=== PATIENT | female | born 1940 | race Caucasian/White ===

== ENCOUNTER 2017-05-08 12:14 | Inpatient (IN) | payer OTHER, MEDICARE ==
[~2017-05-08] VITALS: Ht 154.9 cm; Wt 52.0 kg
[~2017-05-08 12:14] MED LIST: FENO160T2 OR; FISHOIL PO; GLYB5TAB3 OR; LEVO75TA3 PO; LISI10TA PO; METO50CR OR; NIAC500T52 PO; SIMV80TA OR
[2017-05-08 12:30] VITALS: BP 156/70; PULSE 76; RESP 18; TEMP 98.2; O2SAT 97
--- NOTE | 2017-05-08 12:38 | PD ---
HPI Chief Complaint: Psychiatric Symptoms Time Seen by Provider: 12:28 Travel History International Travel<30 days: No Contact w/Intl Traveler<30days: No Traveled to known affect area: No History of Present Illness HPI 76-year-old female here under Crews act initiated by the Police Department. The patient reports that her in March of this year. Her daughter from [place] has been visiting and staying with her since then. She feels like her daughter has been trying to control her and they have been arguing quite a bit. Today they had an argument and the patient said to her daughter "I'd probably be better off with her father." This was taken as a suicidal statement and the daughter called the police who placed her under Crews act. According to the police there are firearms at home. The patient denies any suicidal or homicidal ideation. She denies any drug or alcohol use. She does endorse some grieving since her . She has no other complaints. PFSH Past Medical History High Cholesterol: Yes Coronary Artery Disease: Yes Diabetes: Yes Diminished Hearing: No Hypertension: Yes Tubal Ligation: Yes Past Surgical History Cardiac Surgery: Yes (BYPASS) Section: Yes Cholecystectomy: Yes Tonsillectomy: Yes Other Surgery: Yes (CARPLE TUNNEL) Social History Alcohol Use: No Tobacco Use: No Substance Use: No Allergies-Medications (Allergen,Severity, Reaction): Coded Allergies: Sulfa (Verified Allergy, Severe, HIVES AND RESPIRATORY ISSUES, 07/09/12) Macrodantin (Verified Allergy, Mild, VOMITING, 07/09/12) Vasotec (Verified Allergy, Mild, VOMITING, 07/09/12) Reported Meds & Prescriptions Reported Meds & Active Scripts Active Reported Levothyroxine Sodium (Generic) (Levothyroxine Sodium) 75 Mcg Tab 75 Mcg PO DAILY Fenofibrate 160 Mg Tab 160 Mg OR DAILY Niacin Er (Niacin) 500 Mg Tab 500 Mg PO DAILY Fish Oil Oil 1 Dose PO DAILY Glyburide 5 Mg Tab 5 Mg OR DIRECTED Simvastatin 80 Mg Tab 80 Mg OR DAILY Lisinopril/Hctz 20/25 (HCTZ/Lisinopril) Tab 1 Tab PO DAILY Metoprolol Succinate Er (Metoprolol Succinate) 50 Mg Tab 50 Mg OR DAILY Review of Systems Except as stated in HPI: all other systems reviewed are Neg Physical Exam Narrative GENERAL: Well-developed well-nourished female in no acute distress SKIN: Warm and dry. HEAD: Atraumatic. Normocephalic. EYES: Pupils equal and round. No scleral icterus. No injection or drainage. ENT: No nasal bleeding or discharge. Mucous membranes pink and moist. NECK: Trachea midline. No JVD. CARDIOVASCULAR: Regular rate and rhythm. 1+ systolic murmur noted. RESPIRATORY: No accessory muscle use. Clear to auscultation. Breath sounds equal bilaterally. GASTROINTESTINAL: Abdomen soft, non-tender, nondistended. Hepatic and splenic margins not palpable. MUSCULOSKELETAL: No obvious deformities. No clubbing. No cyanosis. No edema. NEUROLOGICAL: Awake and alert. No obvious cranial nerve deficits. Motor grossly within normal limits. Normal speech. PSYCHIATRIC: Appropriate mood and affect; insight and judgment normal. Data Data Last Documented VS Vital Signs Date Time Temp Pulse Resp B/P Pulse Ox O2 Delivery O2 Flow Rate FiO2 05/08/17 12:30 98.2 76 18 156/70 97 Orders Complete Blood Count With Diff (05/08/17 12:35) Comprehensive Metabolic Panel (05/08/17 12:35) Urinalysis - C+S If Indicated (05/08/17 12:35) Psych Screen (05/08/17 12:35) Drug Screen, Random Urine (05/08/17 12:35) Labs Laboratory Tests Test 05/08/17 12:50 White Blood Count 11.1 TH/MM3 Red Blood Count 4.83 MIL/MM3 Hemoglobin 13.9 GM/DL Hematocrit 41.0 % Mean Corpuscular Volume 84.9 FL Mean Corpuscular Hemoglobin 28.8 PG Mean Corpuscular Hemoglobin 34.0 % Concent Red Cell Distribution Width 13.4 % Platelet Count 241 TH/MM3 Mean Platelet Volume 8.2 FL Neutrophils (%) (Auto) 74.5 % Lymphocytes (%) (Auto) 14.9 % Monocytes (%) (Auto) 8.6 % Eosinophils (%) (Auto) 1.5 % Basophils (%) (Auto) 0.5 % Neutrophils # (Auto) 8.3 TH/MM3 Lymphocytes # (Auto) 1.7 TH/MM3 Monocytes # (Auto) 1.0 TH/MM3 Eosinophils # (Auto) 0.2 TH/MM3 Basophils # (Auto) 0.1 TH/MM3 CBC Comment DIFF FINAL Differential Comment Sodium Level 141 MEQ/L Potassium Level 3.5 MEQ/L Chloride Level 105 MEQ/L Carbon Dioxide Level 28.2 MEQ/L Anion Gap 8 MEQ/L Blood Urea Nitrogen 18 MG/DL Creatinine 0.91 MG/DL Estimat Glomerular Filtration 60 ML/MIN Rate Random Glucose 98 MG/DL Calcium Level 9.7 MG/DL Total Bilirubin 0.7 MG/DL Aspartate Amino Transf 39 U/L (AST/SGOT) Alanine Aminotransferase 38 U/L (ALT/SGPT) Alkaline Phosphatase 91 U/L Total Protein 7.6 GM/DL Albumin 3.9 GM/DL MDM Medical Decision Making Medical Screen Exam Complete: Yes Emergency Medical Condition: Yes Medical Record Reviewed: Yes Differential Diagnosis Adjustment reaction, grieving, major depressive disorder, acute psychosis, substance-induced disorder Narrative Course 76-year-old female presents under Crews act for suicidal statements made to her daughter. Mental health screening discussed with the patient. Psychiatric screen ordered. The patient is medically cleared for psychiatric disposition. Diagnosis Primary Impression: Grieving Additional Impression: Adjustment reaction Qualified Code: F43.20 - Adjustment disorder, unspecified type Rah Godoy May 08, 2017 12:37
[2017-05-08 13:13] LABS: AUTOMATED NEUTROPHIL # 8.3 TH/MM3 (1.8-7.7); BASOPHIL # 0.1 TH/MM3 (0-0.2); BASOPHIL % 0.5 % (0.0-2.0); EOSINOPHIL # 0.2 TH/MM3 (0-0.4); EOSINOPHIL % 1.5 % (0.0-4.0); HEMO FLAGS DIFF FINAL; LYMPH % 14.9 % (9.0-44.0); LYMPHOCYTE # 1.7 TH/MM3 (1.0-4.8); MEAN CELL VOLUME 84.9 FL (80.0-100.0); MEAN CORPUSCULAR HEMOGLOBIN 28.8 PG (27.0-34.0); MONO % 8.6 % (0.0-8.0); NEUT % 74.5 % (16.0-70.0); PLATELET COUNT 241 TH/MM3 (150-450); RED BLOOD COUNT 4.83 MIL/MM3 (4.00-5.30); RED CELL DISTRIBUTION WIDTH 13.4 % (11.6-17.2); WHITE BLOOD COUNT 11.1 TH/MM3 (4.0-11.0)
[2017-05-08 13:31] LABS: ALT (GPT) 38 U/L (10-53); ANION GAP 8 MEQ/L (5-15); AST (GOT) 39 U/L (15-37); BICARBONATE 28.2 MEQ/L (21.0-32.0); BLOOD UREA NITROGEN 18 MG/DL (7-18); CHLORIDE 105 MEQ/L (98-107); GLOMERULAR FILTRATION RATE 60 ML/MIN (>89); POTASSIUM 3.5 MEQ/L (3.5-5.1); SODIUM (NA) 141 MEQ/L (136-145)
[2017-05-08 13:33] LABS: ALKALINE PHOSPHATASE 91 U/L (45-117); TOTAL BILIRUBIN ADULT 0.7 MG/DL (0.2-1.0)
[2017-05-08] MEDS ORDERED: GLYB5TAB3 PO (14:29)
[2017-05-08] MEDS ORDERED: FENO160T PO (14:29)
[2017-05-08] MEDS ORDERED: FISH100020 (14:29)
[2017-05-08] MEDS ORDERED: LISI20TA3 PO (14:29)
[2017-05-08] MEDS ORDERED: ASPI81TA81 (14:29)
[2017-05-08] MEDS ORDERED: NIAC500T67 PO (14:29)
[2017-05-08] MEDS ORDERED: SIMV80TA PO (14:29)
[2017-05-08 14:46] LABS: AMPHETAMINE, URINE NEG (NEG); BARBITURATES, URINE NEG (NEG); COCAINE, URINE NEG (NEG)
[2017-05-08 15:36] VITALS: BP 158/76
--- NOTE | 2017-05-08 15:41 | PD ---
History of Present Illness Chief Complaint: Psychiatric Symptoms Time Seen by Provider: 14:45 Travel History International Travel<30 Days: No Contact w/Intl Traveler<30days: No Known affected area: No Legal Status Legal Status: Crews Act Crews Act Signed By: [place] History of Present Illness: History of Present Illness HPI 76-year-old female with no previous psychiatric history who is here under Crews act initiated by the Police Department. The BA alleges that she has made suicidal statements towards daughter with the ability to carry them out. The patient is seen in main ed. Awake, alert and oriented. Mood is anxious. Speech is clear and logical. She is tearful at times when talking about her who on march 31, 2017. Since her her daughter has been living with her and the patient reports that they do not get along and that " she wants to control me". She admits to having said that she wanted to but denies that she meant it as a suicidal statement. She denies thta she has made any attempt at harming herself. Patient became agitated when she was informed that she could not be released because she was under a BA. She state " If you don't sedate me I am going to leave this hospital . I'm going to jump out that glass door. Her nurse is at bedside when patient made such statements. EMR reviewed. No previous contact with [facility] psychiatry. Negative toxicology. I contacted her daughter Sabrina at [phone]. She reports that the patient has been increasingly agitated and threatening, that she has tried to hit her with closed fists, that she has threatened on several occasions to take all her pills as well as her 's pills, that she has been hiding objects, not paying her bills and then arguing with the bill collectors who call her, going out in her car and getting lost. The daughter is concerned for her safety as well as her mother's safety since she has threatened to kill herself several times and her behaviors have been escalating. PFSH Past Medical History Arthritis: Yes High Cholesterol: Yes Coronary Artery Disease: Yes Diabetes: Yes Patient Takes Glucophage: No Diminished Hearing: No Hypertension: Yes Influenza Vaccination: Yes ?: Not Tubal Ligation: Yes Past Surgical History Cardiac Surgery: Yes (BYPASS) Section: Yes Cholecystectomy: Yes Coronary Artery Bypass Graft: Yes Tonsillectomy: Yes Other Surgery: Yes (CARPLE TUNNEL) Psychiatric History Psychiatric History Hx Psychiatric Treatment: None reported History of Inpatient Treatment: No Guns or firearms in home: Yes (The ammunition has been removed from the home. ) Social History Born and raised in [place], [place]. since March 2017. has 3 daughters. retired. Hx Alcohol Use: No Hx Tobacco Use: No (quit more than 10 yrs) Hx Substance Use: No Family Psychiatric History Negative Allergies-Medications (Allergen,Severity, Reaction): Coded Allergies: Sulfa (Verified Allergy, Severe, HIVES AND RESPIRATORY ISSUES, 07/09/12) Macrodantin (Verified Allergy, Mild, VOMITING, 07/09/12) Vasotec (Verified Allergy, Mild, VOMITING, 07/09/12) Reported Meds & Prescriptions Reported Meds & Active Scripts Active Reported Fenofibrate 160 Mg Tab 160 Mg PO DAILY Niacin (Niacinamide) 500 Mg Tablet PO BID Fish Oil 1000 mg ([place]-3 Fatty Acids) 1 Cap Cap Glyburide 5 Mg Tab 5 Mg PO BID Take with meals at the same time each day Simvastatin 80 Mg Tab 80 Mg PO DAILY Lisinopril-Hctz 20-25 Mg Tab 1 Tab PO DAILY Aspir-81 (Aspirin) 81 Mg Tabdr 81 Review of Systems Except as stated in HPI: all other systems reviewed are Neg Exam Alert: Yes [place]: Person (ox3) Mood: Angry, Anxious, Depressed Affect: Tearful Speech: Clear, Logical Eye Contact: Normal Memory Intact: Comment (not fformally tetsed) Hallucinations: Other (Negative) Delusions: No Delusion Type: Other (suspicious regarding her daughter) Suicidal: Ideation (denies any) Homicidal: Ideation (deneis any) Insight/Judgement Poor. Not impaired. MDM Medical Decision Making Medical Record Reviewed: Yes Assessment/Plan 76 year old female with no previous psychiatric history who is under a BA after she made suicidal statements to her daughter. The patient's daughter presents concerns for her mother's safety as she has been increasingly agitated and has verbalized her intent to kill herself on several occasions. She has gathered all her pills and threatened to take them although she has not done anything to harm herself. The daughter is also reporting confusion, forgetfulness as well as decreased ability to manage her responsibilities. At this time she will be admitted under the BA in order to further observe, maintain safety and to initiate treatment id necessary. Orders Complete Blood Count With Diff (05/08/17 12:35) Comprehensive Metabolic Panel (05/08/17 12:35) Psych Screen (05/08/17 12:35) Drug Screen, Random Urine (05/08/17 12:35) Results Vital Signs Date Time Temp Pulse Resp B/P Pulse Ox O2 Delivery O2 Flow Rate FiO2 05/08/17 12:30 98.2 76 18 156/70 97 Laboratory Tests Test 05/08/17 05/08/17 12:50 14:00 White Blood Count 11.1 Red Blood Count 4.83 Hemoglobin 13.9 Hematocrit 41.0 Mean Corpuscular Volume 84.9 Mean Corpuscular Hemoglobin 28.8 Mean Corpuscular Hemoglobin 34.0 Concent Red Cell Distribution Width 13.4 Platelet Count 241 Mean Platelet Volume 8.2 Neutrophils (%) (Auto) 74.5 Lymphocytes (%) (Auto) 14.9 Monocytes (%) (Auto) 8.6 Eosinophils (%) (Auto) 1.5 Basophils (%) (Auto) 0.5 Neutrophils # (Auto) 8.3 Lymphocytes # (Auto) 1.7 Monocytes # (Auto) 1.0 Eosinophils # (Auto) 0.2 Basophils # (Auto) 0.1 CBC Comment DIFF FINAL Differential Comment Sodium Level 141 Potassium Level 3.5 Chloride Level 105 Carbon Dioxide Level 28.2 Anion Gap 8 Blood Urea Nitrogen 18 Creatinine 0.91 Estimat Glomerular Filtration 60 Rate Random Glucose 98 Calcium Level 9.7 Total Bilirubin 0.7 Aspartate Amino Transf 39 (AST/SGOT) Alanine Aminotransferase 38 (ALT/SGPT) Alkaline Phosphatase 91 Total Protein 7.6 Albumin 3.9 Urine Opiates Screen NEG Urine Barbiturates Screen NEG Urine Amphetamines Screen NEG Urine Benzodiazepines Screen NEG Urine Cocaine Screen NEG Urine Cannabinoids Screen NEG Diagnosis Primary Impression: Adjustment reaction Additional Impression: Grieving Admitting Information Admitting Physician Requests: Admit (Dr. hoover) Problem Qualifiers Primary Impression: Adjustment reaction Qualified Code: F43.25 - Adjustment disorder with mixed disturbance of emotions and conduct Susanne Mcfarland May 08, 2017 15:41
[2017-05-08] MEDS ORDERED: ACETAMINOPHEN 325 MG TAB PO PRN (15:45)
[2017-05-08] MEDS ORDERED: ALUMINUM/MAGNESIUM/SIMETH 30 ML CUP PO PRN (15:45)
[2017-05-08] MEDS ORDERED: MAGNESIUM HYDROXIDE SUSP 30 ML CUP PO PRN (15:45)
[2017-05-08 16:59] VITALS: BP 199/86; PULSE 85; RESP 22; TEMP 98.4; O2SAT 97
[2017-05-09 06:06] VITALS: BP 125/58; PULSE 77; RESP 17; TEMP 98; O2SAT 97
[2017-05-09 08:49] LABS: ANION GAP 12 MEQ/L (5-15); BICARBONATE 25.5 MEQ/L (21.0-32.0); BLOOD UREA NITROGEN 18 MG/DL (7-18); CHLORIDE 103 MEQ/L (98-107); GLOMERULAR FILTRATION RATE 71 ML/MIN (>89); POTASSIUM 3.5 MEQ/L (3.5-5.1); SODIUM (NA) 140 MEQ/L (136-145)
[2017-05-09] MEDS ORDERED: FENOFIBRATE 145 MG TAB PO SCH (09:00)
[2017-05-09] MEDS ORDERED: NON-FORMULARY DRUG (Lisinopril-Hctz 1 TAB) PO SCH (09:00)
[2017-05-09] MEDS ORDERED: HYDROCHLOROTHIAZIDE 25 MG TAB PO SCH (09:00)
[2017-05-09] MEDS ORDERED: SIMVASTATIN 80 MG PO SCH (09:00)
[2017-05-09] MEDS ORDERED: LISINOPRIL 20 MG TAB PO SCH (09:00)
[2017-05-09 09:16] LABS: HDL CHOLESTEROL 33.9 MG/DL (40.0-60.0); LDL CHOLESTEROL 89 MG/DL (0-99)
[2017-05-09 10:55] LABS: HEMOGLOBIN A1a 1.1 %; HEMOGLOBIN A1b 1.9 %; HEMOGLOBIN Ao 83.9 %; HEMOGLOBIN LA1C 2.3 %; HEMOGLOBIN P3 5.9 %
[2017-05-09] MEDS ORDERED: ALUMINUM/MAGNESIUM/SIMETH 30 ML CUP PO PRN (11:30)
[2017-05-09] MEDS ORDERED: MAGNESIUM HYDROXIDE SUSP 30 ML CUP PO PRN (11:30)
[2017-05-09] MEDS ORDERED: ACETAMINOPHEN 325 MG TAB PO PRN (11:30)
--- NOTE | 2017-05-09 11:42 | HHI.HP ---
Provisional Diagnosis Admission Date May 08, 2017 at 15:44 [place] I. Adjustment disorder with mixed disturbances of conduct and emotion f 43.25 Certification of Person's Competence To Provide Express and Informed Consent I have personally examined Micaela Candelaria , a person being served at [facility] on, May 09, 2017 11:28. Express and informed consent means consent voluntarily given in writing, by a competent person, after sufficient explanation and disclosure of the subject matter involved to enable the person to make a knowing and willful decision without any element of force, fraud, deceit, duress, or other form of constraint or coercion. This person is 18 years of age or older, is not now known to be incompetent to consent to treatment with a guardian advocate, and does not have a health care surrogate or proxy currently making medical treatment decisions. I have found this person to be one of the following: [xxx] Competent to provide express and informed consent, as defined above, for voluntary admission to this facility and is competent to provide express and informed consent for treatment. He/she has the consistent capacity to make well reasoned, willful, and knowing decisions concerning his or her medical or mental health treatment. The person fully and consistently understands the purpose of the admission for examination/placement and is fully capable of personally exercising all rights assured under [place] Incompetent to provide express and informed consent to voluntary admission, and this is incompetent to provide express and informed consent to treatment. The person must be transferred to involuntary status and a petition for a guardian advocate filed with the Circuit Court. [] Refusing to provide express and informed consent to voluntary admission but is competent to provide express and informed consent for treatment. The person must be discharged or transferred to involuntary status. Form shall be completed within 24 hours of a person's arrival at the receiving facility and filed in the clinical record of each person: 1. Admitted on a voluntary basis 2. Permitted to provide express and informed consent to his/her own treatment 3. Allowed to transfer from involuntary to voluntary status 4. Prior to permitting a person to consent to his or her own treatment after having been previously found incompetent to consent to treatment. History of Present Illness Capacity: Has Capacity HPI Patient is a 76-year-old white female initially comes here under Crews act by the [employer] dated 05/08/17 11:35 AM. That document reviewed. Stating suicidal statements towards daughter with the ability to carry them out patient seen in ED screened there. Urine toxicology negative. Patient seen in her room with nurse Vanessa and counselor Alysha. Patient is alert oriented calm white female appears her stated age. Stating that her of 59 years around March 31 after a bout of cancer. He did dietary here at [facility]. Prior to 's her 60+-year-old daughter came down from [place] to assist. Patient states that at the present time daughter is becoming more controlling and demanding of her. To the point with relationship appears to be somewhat contentious. Patient did acknowledge making statement yesterday after being in an argument with her daughter that essentially if things 1 change she would rather be and with her . Patient denies that this is any type of a suicidal statement. She denies suicidal ideation intent or plan. Patient denies any prior suicidal ideation intent or plan. Patient denies any prior psychiatric contact hospitalizations or psychotropic medication. She denies any alcohol or drug use. Patient states she has 3 daughters. All of which live up around the [place] in [facility]. She states she had a long loving relationship with her . She acknowledges crying episodes at times still. She states her sleep is okay, her appetite is okay, she denies any voices or visions, states her concentration and attention is okay. She does acknowledge some decreased coping skills with her daughter. She denies any self-medication. Patient is well oriented 4. At this time patient does not meet Crews criteria I will lift the Crews act allow to be discharged herself, no Rx by me, but with a strong recommendation for grief counseling. There also may be some financial issues involved with this patient states she does have a long-standing trust fund that. But denies having any present legal resources. Thus I recommend that she contact a feed research aide to help her with her legal or financial issues that may arise Review of Systems Constitutional: DENIES: Diaphoretic episodes, Fatigue, Fever, Weight gain, Weight loss, Chills, Dizziness, Change in appetite, Night Sweats Endocrine: DENIES: Abnorml menstrual pattern, Heat/cold intolerance, Polydipsia , Polyuria, Polyphagia Eyes: DENIES: Blurred vision, Diplopia, Eye inflammation, Eye pain, Vision loss , Photosensitivity, Double Vision Ears, nose, mouth, throat: DENIES: Tinnitus, Hearing loss, Vertigo, Nasal discharge, Oral lesions, Throat pain, Hoarseness, Ear Pain, Running Nose, Epistaxis, Sinus Pain, Toothache, Odynophagia Respiratory: DENIES: Apneas, Cough, Snoring, Wheezing, Hemoptysis, Sputum production, Shortness of breath Cardiovascular: DENIES: Chest pain, Palpitations, Syncope, Dyspnea on Exertion , PND, Lower Extremity Edema, Orthopnea, Claudication Gastrointestinal: DENIES: Abdominal pain, Black stools, Bloody stools, Constipation, Diarrhea, Nausea, Vomiting, Difficulty Swallowing, Anorexia Genitourinary: DENIES: Abnormal vaginal bleeding, Dysmenorrhea, Dyspareunia, Sexual dysfunction, Urinary frequency, Urinary incontinence, Urgency, Hematuria , Dysuria, Nocturia, Vaginal discharge Musculoskeletal: DENIES: Joint pain, Muscle aches, Stiffness, Joint Swelling, Back pain, Neck pain Integumentary: DENIES: Abnormal pigmentation, Pruritus, Rash, Nail changes, Breast masses, Breast skin changes, Nipple discharge Hematologic/lymphatic: DENIES: Bruising, Lymphadenopathy Immunologic/allergic: DENIES: Eczema, Urticaria Neurologic: DENIES: Abnormal gait, Headache, Localized weakness, Paresthesias, Seizures, Speech Problems, Tremor, Poor Balance Psychiatric: COMPLAINS OF: Depression (appears grief related), Suicidal Ideation (denies any suicidal ideation intent or plan at this time) Past Psych History Psychological trauma history Denies physical or sexual abuse Violence risk - others (6 mos) Low Violence risk - self (6 mos) Low Substance Abuse History Drugs/Alcohol past 12 months Denies Past Family Social History Coded Allergies: Sulfa (Verified Allergy, Severe, HIVES AND RESPIRATORY ISSUES, 07/09/12) Macrodantin (Verified Allergy, Mild, VOMITING, 07/09/12) Vasotec (Verified Allergy, Mild, VOMITING, 07/09/12) Past Medical History Patient medically cleared ED Reported Medications Fenofibrate 160 Mg Are256 Mg PO DAILY #30 TAB Ref 0 05/08/17 Niacinamide (Niacin)500 Mg Tablet Po Bid 05/08/17 [place]-3 Fatty Acids (Fish Oil 1000 mg)1 Cap Cap 05/08/17 Glyburide 5 Mg Tab5 Mg PO BID #60 TAB Ref 0 Take with meals at the same time each day 05/08/17 Simvastatin 80 Mg Tab80 Mg PO DAILY #30 TAB Ref 0 05/08/17 Lisinopril-Hctz 20-25 Mg Tab1 Tab PO DAILY #30 TAB Ref 0 05/08/[address] (Aspir-81)81 Mg Tabdr81 05/08/17 Current Medications Medications (Trade) Dose Ordered Sig/Jose Miguel Route Start Time Stop Time Status Last Admin (Tylenol) 650 mg Q4H PRN PO 05/08/17 15:45 (Milk Of Magnesia Liq) 30 ml DAILY PRN PO 05/08/17 15:45 (Mag-Al Plus Susp Liq) 30 ml Q6H PRN PO 05/08/17 15:45 (Tricor) 145 mg DAILY PO 05/09/17 09:00 05/09/17 08:30 Patient Own Medication PT OWN MED: SIMVASTA... DAILY PO 05/09/17 09:00 Hold (Prinivil) 20 mg DAILY PO 05/09/17 09:00 05/09/17 08:30 (Hydrodiuril) 25 mg DAILY PO 05/09/17 09:00 05/09/17 08:30 Family History Patient denies any mental illness in family Social History Patient recently , has 3 adult daughters. One of whom is visiting with her now Patient's Strengths (min. 2) Patient verbal cooperative understanding of issues Physical Exam Patient seen screen in ED exam reviewed and agreed with. Patient sitting quietly in her room she is in no acute distress, neck is supple, no respiratory distress, abdomen soft and nontender, moves all 4 extremities without difficulty. No abnormal motor movements Vital Signs Vital Signs Date Time Temp Pulse Resp B/P Pulse Ox O2 Delivery O2 Flow Rate FiO2 05/09/17 06:06 98.0 77 17 125/58 97 Mental Status Examination Alert oriented white female appears stated age sitting calmly in her room with staff as mentioned above calm cooperative with good eye contact Appearance Clean neatly Speech: Unremarkable Orientation: x3 Memory: Unremarkable Thought Process: Logical, Organized Thought Content: Unremarkable Language Good Fund of Knowledge There Hallucination Type: None Attention and Concentration: Good Suicidal Ideation: No (denies) Previous Suicide Attempts: No (denies) Suicidal Plan Remarks Denies Homicidal Ideation: No Previous Homicide Attempts: No Insight: Fair Judgment: WNL Affect: Other (slight decreased range intensity) Mood: Euthymic (to mildly dysphoric) Motor Activity: Normal gait Assessment & Plan Problem List: (1) Adjustment disorder with mixed disturbance of emotions and conduct ICD Code: F43.25 Assessment & Plan Estimated LOS: days patient does not meet Crews criteria will lift Crews act patient to be discharged herself, no Rx by me, strong recommendation grief counseling, strong recommendation she finds legal counseling to help her with any legal or financial issues that might arise Discharge Planning See above Request HC Surrog/Guard Advoc?: No Davy Morales MD May 09, 2017 11:42
--- NOTE | 2017-05-09 12:43 | HHI.DS ---
Psychiatry Discharge Summary Inpatient Psychiatric care?: Yes Advance Directive: No Reason Not Provided: Due to Patient Condition Mental Health AdvanceDirective: No Health Care Proxy: No Admission Admission Date May 08, 2017 at 15:44 Admission Diagnosis: (1) Adjustment disorder with mixed disturbance of emotions and conduct ICD Code: F43.25 Brief History Patient is a 76-year-old white female initially comes here under Crews act by the [place] [employer] dated 05/08/17 11:35 AM. That document reviewed. Stating suicidal statements towards daughter with the ability to carry them out patient seen in ED screened there. Urine toxicology negative. Patient seen in her room with nurse Vanessa and counselor Alysha. Patient is alert oriented calm white female appears her stated age. Stating that her of 59 years around March 31 after a bout of cancer. He did dietary here at [facility]. Prior to 's her 60+-year-old daughter came down from [place] to assist. Patient states that at the present time daughter is becoming more controlling and demanding of her. To the point with relationship appears to be somewhat contentious. Patient did acknowledge making statement yesterday after being in an argument with her daughter that essentially if things 1 change she would rather be and with her . Patient denies that this is any type of a suicidal statement. She denies suicidal ideation intent or plan. Patient denies any prior suicidal ideation intent or plan. Patient denies any prior psychiatric contact hospitalizations or psychotropic medication. She denies any alcohol or drug use. Patient states she has 3 daughters. All of which live up around the [place] in [facility]. She states she had a long loving relationship with her . She acknowledges crying episodes at times still. She states her sleep is okay, her appetite is okay, she denies any voices or visions, states her concentration and attention is okay. She does acknowledge some decreased coping skills with her daughter. She denies any self-medication. Patient is well oriented 4. At this time patient does not meet Crews criteria I will lift the Crews act allow to be discharged herself, no Rx by me, but with a strong recommendation for grief counseling. There also may be some financial issues involved with this patient states she does have a long-standing trust fund that. But denies having any present legal resources. Thus I recommend that she contact a teacher adult education to help her with her legal or financial issues that may arise Tobacco Use In Past 30 Days: No Tobacco Past 30 Days Alcohol Use: Never Hospital Course Please see above dictation under brief history. Patient does not meet Crews criteria. Lift Crews act. Patient to be discharged to herself, no Rx by me, she may continue her own scheduled home medications, strong referral to grief counseling, also referral to get legal advice to protect her legal and financial issues Results Blood Pressure 125 / 58 Vital Signs Date Time Temp Pulse Resp B/P Pulse Ox O2 Delivery O2 Flow Rate FiO2 05/09/17 06:06 98.0 77 17 125/58 97 Laboratory Tests Test 05/08/17 05/09/17 12:50 08:10 White Blood Count 11.1 TH/MM3 (4.0-11.0) Neutrophils (%) (Auto) 74.5 % (16.0-70.0) Monocytes (%) (Auto) 8.6 % (0.0-8.0) Neutrophils # (Auto) 8.3 TH/MM3 (1.8-7.7) Monocytes # (Auto) 1.0 TH/MM3 (0-0.9) Estimat Glomerular Filtration 60 ML/MIN (>89) 71 ML/MIN (>89) Rate Aspartate Amino Transf 39 U/L (15-37) (AST/SGOT) Random Glucose 133 MG/DL (74-106) HDL Cholesterol 33.9 MG/DL (40.0-60.0) Vitamin B12 Level 1393 PG/ML (193-986) 25-Hydroxy Vitamin D Total 15.3 ng/ML (30-100) Laboratory Results Test 05/09/17 08:10 Hemoglobin A1c 6.0 % (4.3-6.0) Triglycerides Level 144 MG/DL (42-150) Cholesterol Level 152 MG/DL (120-200) LDL Cholesterol 89 MG/DL (0-99) HDL Cholesterol 33.9 MG/DL (40.0-60.0) Summary of Procedures None done Pending results at discharge: No Medications # of Antipsychotic meds at D/C: 0 Approp Antipsych med options 1 - Minimum of three failed multiple trials of monotherapy. 2 - Documented plan to taper to monotherapy due to previous use of multiple meds OR cross-taper in progress at D/C. 3 - Documentation of augmentation of Clozapine. 4 - Justification other than those listed in allowable values 1-3, document here : Discharge Discharge Date: May 09, 2017 Discharge Diagnosis: (1) Adjustment disorder with mixed disturbance of emotions and conduct Diagnosis: Principal ICD Code: F43.25 Mental Status Exam at Disch Alert oriented elderly white female calm cooperative. She is normal active. Her mood is euthymic to mildly dysphoric with good range intensity of her affect. Speech rate and rhythm within normal limits though no formal thought disorders. No auditory or visual hallucinations. No delusions. Insight and judgment is fair. Cognition grossly intact Pt Condition on Discharge: Stable Discharge Disposition: Discharge Home Discharge Instructions Diet Instructions: Heart Healthy Diet Activities you can perform: Regular-No Restrictions Scheduled Appointment: [place] [facility] Appointment Date: May 16, 2017 Appointment Time: 0:00pm Discharge Time > 30 minutes Discharge/Advance Care Plan Health Problems: (1) Adjustment disorder with mixed disturbance of emotions and conduct Goals to promote your health * To prevent worsening of your condition and complications * To maintain your health at the optimal level Directions to meet your goals Take your medications as prescribed Follow your dietary instruction Follow activity as directed Keep your appointments as scheduled Take your immunizations and boosters as scheduled If your symptoms worsen call your PCP, if no PCP go to Urgent Care Center or Emergency Room For 19/06 questions related to your inpatient stay or results of tests pending at discharge, please contact Dr. Davy Morales at Smoking is Dangerous to Your Health. Avoid second hand smoking Davy Morales MD May 09, 2017 12:43
== END 2017-05-09 13:50 | disposition home or self-care (01) | DRG 882 ==
LOC: NEPD 12:14 → NEDA 15:44 → H260 16:03
PROVIDERS: ADMIT Psychiatry & Neurology Psychiatry; ATTEND Psychiatry & Neurology Psychiatry
DX: F43.25 Adjustment disorder with mixed disturbance of emotions and conduct (principal); E11.9 Type 2 diabetes mellitus without complications; Z79.84 Long term (current) use of oral hypoglycemic drugs; I10 Essential (primary) hypertension; E78.00 Pure hypercholesterolemia, unspecified; I25.10 Atherosclerotic heart disease of native coronary artery without angina pectoris; Z95.1 Presence of aortocoronary bypass graft; Z87.891 Personal history of nicotine dependence
CPT/HCPCS: 80048; 80053; 80061; 80307; 82306; 82607; 83036; 85025

== ENCOUNTER 2018-01-12 18:24 | Inpatient (IN) | payer OTHER, MEDICARE ==
[~2018-01-12] VITALS: Ht 157.5 cm; Wt 53.7 kg
[~2018-01-12 18:24] MED LIST changes: +ASPI81TA81 PO; +FENO160T PO; -FENO160T2 OR; +FISH100020; -FISHOIL PO; -GLYB5TAB3 OR; +GLYB5TAB3 PO; -LEVO75TA3 PO; -LISI10TA PO; +LISI20TA3 PO; -METO50CR OR; -NIAC500T52 PO; +NIAC500T67 PO; -SIMV80TA OR; +SIMV80TA PO
[2018-01-12] MEDS ORDERED: SODIUM CHLORIDE 0.9% FLUSH 10 ML FLUSH IVF PRN (18:30)
[2018-01-12 18:35] VITALS: BP 138/52; PULSE 90; RESP 16; TEMP 99.3; O2SAT 95
--- NOTE | 2018-01-12 18:35 | PD ---
HPI Chief Complaint: Syncope; Hypoglycemia Time Seen by Provider: 18:28 Travel History International Travel<30 days: No Contact w/Intl Traveler<30days: No History of Present Illness HPI The patient 77-year-old female who arrives complaining of recurrent loss of consciousness. She arrives from home by EMS. The blood glucose was 35. She received oral glucose and glucose dropped shortly thereafter. She did improve in terms of mentation after the oral glucose. She then received an amp of D50 and the blood glucose upon arrival here is reported to have been 400. The patient reports loss of appetite. Location endocrine and generalized. Severity moderate to severe. She reports a cough and anorexia. Compliant with glyburide reported. PFSH Past Medical History Arthritis: Yes High Cholesterol: Yes Coronary Artery Disease: Yes Diabetes: Yes Diminished Hearing: No Hypertension: Yes Tubal Ligation: Yes Past Surgical History Cardiac Surgery: Yes (BYPASS) Section: Yes Cholecystectomy: Yes Coronary Artery Bypass Graft: Yes Tonsillectomy: Yes Other Surgery: Yes (CARPLE TUNNEL) Social History Alcohol Use: No Tobacco Use: No (quit more than 10 yrs) Substance Use: No Allergies-Medications (Allergen,Severity, Reaction): Coded Allergies: Sulfa (Sulfonamide Antibiotics) (Unverified Allergy, Severe, HIVES AND RESPIRATORY ISSUES, 07/11/17) enalaprilat (Unverified Allergy, Mild, VOMITING, 07/11/17) nitrofurantoin (Unverified Allergy, Mild, VOMITING, 07/11/17) Reported Meds & Prescriptions Reported Meds & Active Scripts Active Reported Fenofibrate 160 Mg Tab 160 Mg PO DAILY Niacin (Niacinamide) 500 Mg Tablet PO BID Fish Oil 1000 mg ([place]-3 Fatty Acids) 1 Cap Cap Glyburide 5 Mg Tab 5 Mg PO BID Take with meals at the same time each day Simvastatin 80 Mg Tab 80 Mg PO DAILY Lisinopril-Hctz 20-25 Mg Tab 1 Tab PO DAILY Aspir-81 (Aspirin) 81 Mg Tabdr 81 Review of Systems Except as stated in HPI: all other systems reviewed are Neg General / Constitutional: No: Fever Physical Exam Narrative GENERAL: 77-year-old female pleasant well-nourished well-developed SKIN: Warm and dry. HEAD: Atraumatic. Normocephalic. EYES: Pupils equal and round. No scleral icterus. No injection or drainage. ENT: No nasal bleeding or discharge. Mucous membranes pink and moist. NECK: Trachea midline. No JVD. CARDIOVASCULAR: Regular rate and rhythm. RESPIRATORY: Occasional cough. Minimal wheezing bilaterally. GASTROINTESTINAL: Abdomen soft, non-tender, nondistended. Hepatic and splenic margins not palpable. MUSCULOSKELETAL: Extremities without clubbing, cyanosis, or edema. No obvious deformities. NEUROLOGICAL: Awake and alert. No obvious cranial nerve deficits. Motor grossly within normal limits. Five out of 5 muscle strength in the arms and legs. Normal speech. PSYCHIATRIC: Appropriate mood and affect; insight and judgment normal. Data Data Orders Orders Electrocardiogram (01/12/18 18:28) Complete Blood Count With Diff (01/12/18 18:28) Comprehensive Metabolic Panel (01/12/18 18:28) Magnesium (Mg) (01/12/18 18:28) Beta Hydroxybutyrate (Acetone) (01/12/18 18:28) Urinalysis - C+S If Indicated (01/12/18 18:28) Chest, Single Ap (01/12/18 18:28) Blood Glucose (01/12/18 18:28) Blood Glucose (01/12/18 18:58) Ecg Monitoring (01/12/18 18:28) Iv Access Insert/Monitor (01/12/18 18:28) Oximetry (01/12/18 18:28) NPO (01/12/18 18:28) Sodium Chloride 0.9% Flush (Ns Flush) (01/12/18 18:30) Troponin I (01/12/18 18:28) Lipase (01/12/18 18:28) Ct Brain W/O Iv Contrast(Rout) (01/12/18 18:28) [facility] Medical Decision Making Medical Screen Exam Complete: Yes Emergency Medical Condition: Yes Medical Record Reviewed: Yes Differential Diagnosis sulfonylurea overdose, urinary tract infection, side effect from social following areas, excessive insulin ingestion, anorexia Narrative Course Monitor initiated. Workup initiated. Medication might have a sulfa rhinorrhea induced hypoglycemia. Every 30 minute fingerstick glucoses ordered. Patient discussed with on-call provider at 7 PM with plan to follow bloodwork and disposition patient with plan for admission likely. Kyree Olivares MD Jan 12, 2018 18:35
[2018-01-12] MEDS ORDERED: LEVO88TA2 PO (18:38)
[2018-01-12] MEDS ORDERED: GLIM4TAB PO (18:38)
[2018-01-12] MEDS ORDERED: MAGN400T2 PO (18:38)
[2018-01-12] MEDS ORDERED: METO50TA PO (18:38)
[2018-01-12] MEDS ORDERED: POTA10TA2 PO (18:38)
[2018-01-12] MEDS ORDERED: ATOR20TA15 PO (18:38)
[2018-01-12 18:40] VITALS: O2SAT 95
--- NOTE | 2018-01-12 18:59 | RADRPT ---
EXAM DATE/TIME: 01/12/2018 18:32 [facility] COMPARISON: CHEST SINGLE AP, July 09, 2012, 11:54. INDICATIONS : Syncope. MEDICAL HISTORY : Cardiovascular disease. SURGICAL HISTORY : CABG. ENCOUNTER: Initial ACUITY: 1 day PAIN SCORE: 0/10 LOCATION: Bilateral chest FINDINGS: A single view of the chest demonstrates mild basilar atelectasis or scarring. No effusions. No pneumo thorax. Postop median sternotomy and CABG. Mildly tortuous aorta. CONCLUSION: 1. Minimal basilar atelectasis or scarring. No effusion or pneumothorax. Petey Harper MD on January 12, 2018 at 18:57 Board Certified Radiologist. This report was verified electronically.
[2018-01-12 19:00] LABS: BASOPHIL # 0.1 TH/MM3 (0-0.2); BASOPHIL % 0.8 % (0.0-2.0); HEMATOCRIT 37.5 % (35.0-46.0); HEMOGLOBIN 12.8 GM/DL (11.6-15.3); LYMPH % 7.2 % (9.0-44.0); LYMPHOCYTE # 0.6 TH/MM3 (1.0-4.8); MEAN CELL VOLUME 87.4 FL (80.0-100.0); MEAN CORPUSCULAR HEMOGLOBIN 29.8 PG (27.0-34.0); MEAN PLATELET VOLUME 8.1 FL (7.0-11.0); MONO % 2.4 % (0.0-8.0); MONOCYTE # 0.2 TH/MM3 (0-0.9); NEUT % 89.6 % (16.0-70.0); PLATELET COUNT 165 TH/MM3 (150-450); RED BLOOD COUNT 4.29 MIL/MM3 (4.00-5.30); RED CELL DISTRIBUTION WIDTH 13.5 % (11.6-17.2); WHITE BLOOD COUNT 7.9 TH/MM3 (4.0-11.0)
[2018-01-12 19:15] VITALS: BP 138/57; PULSE 81; RESP 16; O2SAT 93
[2018-01-12 19:17] LABS: ALBUMIN 3.2 GM/DL (3.4-5.0); BLOOD UREA NITROGEN 15 MG/DL (7-18); CALCIUM 7.6 MG/DL (8.5-10.1); CHLORIDE 96 MEQ/L (98-107); GLUCOSE,RANDOM 263 MG/DL (74-106); MAGNESIUM 1.8 MG/DL (1.5-2.5); SODIUM (NA) 131 MEQ/L (136-145)
[2018-01-12] MEDS: NS + KCL 20 MEQ INJ 1,000 ML IV SCH (19:29)
[2018-01-12] MEDS ORDERED: POTASSIUM CHLORIDE 20 MEQ CONTROLLED RELEASE TAB PO ONE (19:30)
[2018-01-12 19:40] LABS: ALKALINE PHOSPHATASE 43 U/L (45-117); ALT (GPT) 36 U/L (10-53); AST (GOT) 78 U/L (15-37); GLOMERULAR FILTRATION RATE 43 ML/MIN (>89); TOTAL BILIRUBIN ADULT 0.4 MG/DL (0.2-1.0); TOTAL PROTEIN 6.7 GM/DL (6.4-8.2); TROPONIN I 0.11 NG/ML (0.02-0.05)
--- NOTE | 2018-01-12 20:05 | RADRPT ---
EXAM DATE/TIME: 01/12/2018 19:36 [facility] COMPARISON: No previous studies available for comparison. INDICATIONS : Altered mental status. RADIATION DOSE: 62.05 CTDIvol (mGy) MEDICAL HISTORY : Cardiovascular disease. Hypertension. Diabetes mellitus type 2. SURGICAL HISTORY : CABG Cholecystectomy.Tubal ligation. ENCOUNTER: Initial ACUITY: 1 day PAIN SCALE: 0/10 LOCATION: cranial TECHNIQUE: Multiple contiguous axial images were obtained of the head. Using automated exposure control and adj ustment of the mA and/or kV according to patient size, radiation dose was kept as low as reasonably a chievable to obtain optimal diagnostic quality images. DICOM format image data is available electro nically for review and comparison. FINDINGS: CEREBRUM: The ventricles are normal for age. No evidence of midline shift, mass lesion, hemorrhage or acute in farction. No extra-axial fluid collections are seen. POSTERIOR FOSSA: The cerebellum and brainstem are intact. The 4th ventricle is midline. The cerebellopontine angle i s unremarkable. EXTRACRANIAL: The visualized portion of the orbits is intact. SKULL: The calvaria is intact. No evidence of skull fracture. CONCLUSION: 1. No acute intracranial abnormalities. Petey Harper MD on January 12, 2018 at 20:02 Board Certified Radiologist. This report was verified electronically.
[2018-01-12] MEDS ORDERED: GLUCAGON 1 MG/ML VIAL OTHER PRN (20:15)
[2018-01-12] MEDS ORDERED: MAGNESIUM HYDROXIDE SUSP 30 ML CUP PO PRN (20:15)
[2018-01-12] MEDS ORDERED: ONDANSETRON HCL 4 MG/2 ML VIAL IVP PRN (20:15)
[2018-01-12] MEDS ORDERED: ACETAMINOPHEN 325 MG TAB PO PRN (20:15)
[2018-01-12] MEDS ORDERED: SENNOSIDES 8.6 MG TAB PO PRN (20:15)
[2018-01-12] MEDS ORDERED: NITROGLYCERIN 2% OINT 1 GM PACKET TOPICAL PRN (20:15)
[2018-01-12] MEDS ORDERED: SODIUM CHLOR 0.9% 1000 ML INJ 1,000 ML IV SCH (20:15)
[2018-01-12] MEDS ORDERED: ACETAMINOPHEN/HYDROcodone 325 MG/5 MG TAB PO PRN (20:15)
[2018-01-12] MEDS ORDERED: BISACODYL 10 MG SUPP RECTAL PRN (20:15)
[2018-01-12] MEDS ORDERED: SODIUM CHLORIDE 0.9% FLUSH 10 ML FLUSH IV FLUSH PRN (20:15)
[2018-01-12] MEDS ORDERED: LACTULOSE SYRUP 20 GM/30 ML CUP PO PRN (20:15)
[2018-01-12] MEDS ORDERED: MORPHINE SULFATE 2 MG/ML INJ IV PUSH PRN (20:15)
--- NOTE | 2018-01-12 20:15 | PD ---
Data Data Last Documented VS Orders Orders Electrocardiogram (01/12/18 18:28) Complete Blood Count With Diff (01/12/18 18:28) Comprehensive Metabolic Panel (01/12/18 18:) Magnesium (Mg) (01/12/18 18:28) Beta Hydroxybutyrate (Acetone) (01/12/18 18:28) Urinalysis - C+S If Indicated (01/12/18 18:) Chest, Single Ap (01/12/18 18:28) Blood Glucose (01/12/18 18:28) Blood Glucose (01/12/18 18:58) Ecg Monitoring (01/12/18 18:) Iv Access Insert/Monitor (01/12/18:) Oximetry (01/12/18 18:) NPO (01/12/18 18:) Sodium Chloride 0.9% Flush (Ns Flush) (01/12/18 18:30) Troponin I (01/12/18:) Lipase (01/12/18 18:) Ct Brain W/O Iv Contrast(Rout) (01/12/18 18:28) Potassium Chloride (Kcl) (01/12/18 19:30) Ns + Kcl 20 Meq Inj (Ns + Kcl 20 Meq Inj (01/12/18 19:30) Blood Glucose Goal (Criteria) (01/12/18 20:15) Hypoglycemia 70 Mg/Dl Or < (01/12/18 20:15) Notify Dr: Other (01/12/18 20:15) Dextrose 50% In Dannielle (Vial) Inj (D50w (Vi (01/12/18 20:15) Glucagon Inj (Glucagon Inj) (01/12/18 20:15) Insulin Aspart Supplemtl Scale (Novolog (01/12/18 21:00) Hemoglobin (Hgb) A1c (01/13/18 06:00) Nitroglycerin 2% Oint (Nitroglycerin 2% (01/12/18 20:15) Admit To Inpatient (01/12/18 ) Vital Signs (Adult) Q4H (01/12/18 20:15) Activity Oob With Assistance (01/12/18 20:15) Recovery Coach / Telemetry .CONTINUOUS (01/12/18 20:15) Intake + Output BRIAN.QSHIFT (01/12/18 20:15) Diet Heart Healthy (01/13/18 Breakfast) Sodium Chlor 0.9% 1000 Ml Inj (Ns 1000 M (01/12/18 20:15) Sodium Chloride 0.9% Flush (Ns Flush) (01/12/18 20:15) Sodium Chloride 0.9% Flush (Ns Flush) (01/12/18 21:00) Ondansetron Inj (Zofran Inj) (01/12/18 20:15) Comprehensive Metabolic Panel (01/13/18 06:00) Complete Blood Count With Diff (01/13/18 06:00) Troponin I (01/13/18 00:00) Troponin I (01/13/18 06:00) Case Management Consult (01/12/18 20:15) Acetaminophen (Tylenol) (01/12/18 20:15) Acetamin-Hydrocod 325-5 Mg ([place] 5-325 (01/12/18 20:15) Morphine Inj (Morphine Inj) (01/12/18 20:15) Docusate Sodium-Senna (Petrona-Colace) (01/12/18 21:00) Magnesium Hydroxide Liq (Milk Of Magnesi (01/12/18 20:15) Sennosides (Senokot) (01/12/18 20:15) Bisacodyl Supp (Dulcolax Supp) (01/12/18 20:15) Lactulose Liq (Lactulose Liq) (01/12/18 20:15) Inpatient Certification (01/12/18 ) Aspirin Ec (Ecotrin Ec) (01/13/18 09:00) Atorvastatin (Lipitor) (01/12/18 21:00) Metoprolol Tartrate (Lopressor) (01/12/18 21:00) Potassium, Serum (K) (01/13/18 00:00) Magnesium (Mg) (01/13/18 00:00) Consult Cardiology (01/12/18 ) Heparin Inj (Heparin Inj) (01/12/18 20:30) Heparin Inj (Heparin Inj) (01/13/18 02:30) Heparin Inj (Heparin Inj) (01/13/18 02:30) Heparin-D5w 25,000 U/250 Ml (Heparin-D5w (01/12/18 20:30) Act Partial Throm Time (Ptt) (01/13/18 03:21) Occult Blood (Hemoccult) Stool (01/12/18 20:21) Act Partial Throm Time (Ptt) (01/12/18 20:23) Prothrombin Time / Inr (Pt) (01/12/18 20:23) Admit Order (Ed Use Only) (01/12/18 20:32) Labs Laboratory Tests Test 01/12/18 18:50 White Blood Count 7.9 TH/MM3 Red Blood Count 4.29 MIL/MM3 Hemoglobin 12.8 GM/DL Hematocrit 37.5 % Mean Corpuscular Volume 87.4 FL Mean Corpuscular Hemoglobin 29.8 PG Mean Corpuscular Hemoglobin Concent 34.0 % Red Cell Distribution Width 13.5 % Platelet Count 165 TH/MM3 Mean Platelet Volume 8.1 FL Neutrophils (%) (Auto) 89.6 % Lymphocytes (%) (Auto) 7.2 % Monocytes (%) (Auto) 2.4 % Eosinophils (%) (Auto) 0.0 % Basophils (%) (Auto) 0.8 % Neutrophils # (Auto) 7.0 TH/MM3 Lymphocytes # (Auto) 0.6 TH/MM3 Monocytes # (Auto) 0.2 TH/MM3 Eosinophils # (Auto) 0.0 TH/MM3 Basophils # (Auto) 0.1 TH/MM3 CBC Comment DIFF FINAL Differential Comment Blood Urea Nitrogen 15 MG/DL Creatinine 1.20 MG/DL Random Glucose 263 MG/DL Total Protein 6.7 GM/DL Albumin 3.2 GM/DL Calcium Level 7.6 MG/DL Magnesium Level 1.8 MG/DL Alkaline Phosphatase 43 U/L Aspartate Amino Transf (AST/SGOT) 78 U/L Alanine Aminotransferase (ALT/SGPT) 36 U/L Total Bilirubin 0.4 MG/DL Sodium Level 131 MEQ/L Potassium Level 2.5 MEQ/L Chloride Level 96 MEQ/L Carbon Dioxide Level 29.0 MEQ/L Anion Gap 6 MEQ/L Estimat Glomerular Filtration Rate 43 ML/MIN Troponin I 0.11 NG/ML Lipase 337 U/L B-Hydroxybutyrate 0.09 MMOL/L [facility] Medical Record Reviewed: Yes Supervised Visit with GLADYS: Yes Scripts Ciprofloxacin (Cipro) 500 Mg Tab 500 MG PO BID for Infection for 5 Days, #10 TAB 0 Refills Prov: Nemou,Butler MD 01/16/18 Insulin Aspart Inj (Novolog Inj) 100 Unit/Ml Inj 1 UNIT SQ ACHS SLIDING SCALE for dm for 30 Days, INJECTION Prov: Carrie Wong MD 01/15/18 Joaquin Agustin MD Jan 12, 2018 20:15
[2018-01-12] MEDS ORDERED: HEPARIN SODIUM - IV 10,000 UNITS/10 ML VIAL IV ONE (20:30)
[2018-01-12] MEDS ORDERED: HEPARIN-D5W 25,000 U/250 ML 250 ML IV SCH (20:30)
--- NOTE | 2018-01-12 20:32 | PD ---
Physical Exam Time Seen by Provider: 20:[address] Olivares with this patient with me to check the laboratory and make a disposition, likely admission. Data Data Last Documented VS Vital Signs Date Time Temp Pulse Resp B/P (MAP) Pulse Ox O2 Delivery O2 Flow Rate FiO2 01/12/18 19:15 81 16 138/57 (84) 93 Room Air 01/12/18 18:35 99.3 Orders Orders Electrocardiogram (01/12/18 18:28) Complete Blood Count With Diff (01/12/18 18:28) Comprehensive Metabolic Panel (01/12/18 18:28) Magnesium (Mg) (01/12/18 18:28) Beta Hydroxybutyrate (Acetone) (01/12/18 18:28) Urinalysis - C+S If Indicated (01/12/18 18:28) Chest, Single Ap (01/12/18 18:28) Blood Glucose (01/12/18 18:28) Blood Glucose (01/12/18 18:58) Ecg Monitoring (01/12/18 18:) Iv Access Insert/Monitor (01/12/18 18:28) Oximetry (01/12/18 18:28) NPO (01/12/18 18:28) Sodium Chloride 0.9% Flush (Ns Flush) (01/12/18 18:30) Troponin I (01/12/18 18:28) Lipase (01/12/18 18:28) Ct Brain W/O Iv Contrast(Rout) (01/12/18 18:28) Potassium Chloride (Kcl) (01/12/18 19:30) Ns + Kcl 20 Meq Inj (Ns + Kcl 20 Meq Inj (01/12/18 19:30) Bedside Glucose BRIAN.CSUGAR (01/12/18 20:15) Blood Glucose Goal (Criteria) (01/12/18 20:15) Hypoglycemia 70 Mg/Dl Or < (01/12/18 20:15) Notify Dr: Other (01/12/18 20:15) Dextrose 50% In Dannielle (Vial) Inj (D50w (Vi (01/12/18 20:15) Glucagon Inj (Glucagon Inj) (01/12/18 20:15) Insulin Aspart Supplemtl Scale (Novolog (01/12/18 21:00) Hemoglobin (Hgb) A1c (01/13/18 06:00) Nitroglycerin 2% Oint (Nitroglycerin 2% (01/12/18 20:15) Admit To Inpatient (01/12/18 ) Vital Signs (Adult) Q4H (01/12/18 20:15) Activity Oob With Assistance (01/12/18 20:15) Refrigerated [employer] / Telemetry .CONTINUOUS (01/12/18 20:15) Intake + Output BRIAN.QSHIFT (01/12/18 20:15) Diet Heart Healthy (01/13/18 Breakfast) Sodium Chlor 0.9% 1000 Ml Inj (Ns 1000 M (01/12/18 20:15) Sodium Chloride 0.9% Flush (Ns Flush) (01/12/18 20:15) Sodium Chloride 0.9% Flush (Ns Flush) (01/12/18 21:00) Ondansetron Inj (Zofran Inj) (01/12/18 20:15) Comprehensive Metabolic Panel (01/13/18 06:00) Complete Blood Count With Diff (01/13/18 06:00) Troponin I (01/13/18 00:00) Troponin I (01/13/18 06:00) Case Management Consult (01/12/18 20:15) Acetaminophen (Tylenol) (01/12/18 20:15) Acetamin-Hydrocod 325-5 Mg ([place] 5-325 (01/12/18 20:15) Morphine Inj (Morphine Inj) (01/12/18 20:15) Docusate Sodium-Senna (Petrona-Colace) (01/12/18 21:00) Magnesium Hydroxide Liq (Milk Of Magnesi (01/12/18 20:15) Sennosides (Senokot) (01/12/18 20:15) Bisacodyl Supp (Dulcolax Supp) (01/12/18 20:15) Lactulose Liq (Lactulose Liq) (01/12/18 20:15) Inpatient Certification (01/12/18 ) Aspirin Ec (Ecotrin Ec) (01/13/18 09:00) Atorvastatin (Lipitor) (01/12/18 21:00) Metoprolol Tartrate (Lopressor) (01/12/18 21:00) Potassium, Serum (K) (01/13/18 00:00) Magnesium (Mg) (01/13/18 00:00) Consult Cardiology (01/12/18 ) Heparin Inj (Heparin Inj) (01/12/18 20:30) Heparin Inj (Heparin Inj) (01/13/18 02:30) Heparin Inj (Heparin Inj) (01/13/18 02:30) Heparin-D5w 25,000 U/250 Ml (Heparin-D5w (01/12/18 20:30) Cbc No Diff, Includes Plts (01/15/18 06:00) Act Partial Throm Time (Ptt) (01/13/18 03:21) Occult Blood (Hemoccult) Stool (01/12/18 20:21) Act Partial Throm Time (Ptt) (01/12/18 20:23) Prothrombin Time / Inr (Pt) (01/12/18 20:23) Labs Laboratory Tests Test 01/12/18 18:50 White Blood Count 7.9 TH/MM3 Red Blood Count 4.29 MIL/MM3 Hemoglobin 12.8 GM/DL Hematocrit 37.5 % Mean Corpuscular Volume 87.4 FL Mean Corpuscular Hemoglobin 29.8 PG Mean Corpuscular Hemoglobin Concent 34.0 % Red Cell Distribution Width 13.5 % Platelet Count 165 TH/MM3 Mean Platelet Volume 8.1 FL Neutrophils (%) (Auto) 89.6 % Lymphocytes (%) (Auto) 7.2 % Monocytes (%) (Auto) 2.4 % Eosinophils (%) (Auto) 0.0 % Basophils (%) (Auto) 0.8 % Neutrophils # (Auto) 7.0 TH/MM3 Lymphocytes # (Auto) 0.6 TH/MM3 Monocytes # (Auto) 0.2 TH/MM3 Eosinophils # (Auto) 0.0 TH/MM3 Basophils # (Auto) 0.1 TH/MM3 CBC Comment DIFF FINAL Differential Comment Blood Urea Nitrogen 15 MG/DL Creatinine 1.20 MG/DL Random Glucose 263 MG/DL Total Protein 6.7 GM/DL Albumin 3.2 GM/DL Calcium Level 7.6 MG/DL Magnesium Level 1.8 MG/DL Alkaline Phosphatase 43 U/L Aspartate Amino Transf (AST/SGOT) 78 U/L Alanine Aminotransferase (ALT/SGPT) 36 U/L Total Bilirubin 0.4 MG/DL Sodium Level 131 MEQ/L Potassium Level 2.5 MEQ/L Chloride Level 96 MEQ/L Carbon Dioxide Level 29.0 MEQ/L Anion Gap 6 MEQ/L Estimat Glomerular Filtration Rate 43 ML/MIN Troponin I 0.11 NG/ML Lipase 337 U/L B-Hydroxybutyrate 0.09 MMOL/L [facility] Medical Record Reviewed: Yes Supervised Visit with GLADYS: No Interpretation(s) The CBC shows 90% neutrophils but is otherwise normal. The complete metabolic profile shows a potassium of 2.5, sodium 131, creatinine of 1.2 with GFR 43, glucose 263 with AST of 78, alkaline phosphatase of 43 and troponin I of 0.11 and albumen 3.2. The beta hydroxybutyrate is 0.09. Differential Diagnosis Non-STEMI myocardial infarction, Acute coronary syndrome, electrolyte disorder, hypoglycemia from glimepiride, glimepiride overdose, inadequate by mouth intake Narrative Course The patient did not overdose on glimepiride but she has not been eating adequately. For the past 3 days she has only eaten several bites of food. She also has a slightly elevated troponin I and appears to have a non-STEMI. She also has a hypokalemia. The patient denies any chest pain. The patient will likely return with hypoglycemia she is sent home at this time, she is unable to eat adequately. Physician Communication Physician Communication I discussed the patient with Dr. CORREA, the patient will be admitted to her. Diagnosis Primary Impression: Non-STEMI (non-ST elevated myocardial infarction) Additional Impressions: Hypoglycemia secondary to sulfonylurea Hypokalemia Inadequate oral nutritional intake Admitting Information Admitting Physician Requests: Admit Joaquin Agustin MD Jan 12, 2018 20:32
[2018-01-12] MEDS: INSULIN ASPART SUPPLEMENTAL SCALE SQ SCH (21:00)
[2018-01-12 21:12] LABS: INTERNATIONAL NORMALIZED RATIO 1.1 RATIO; PROTHROMBIN TIME - PATIENT 11.5 SEC (9.8-11.6)
[2018-01-12] MEDS: METOPROLOL TARTRATE 50 MG TAB PO SCH (21:49)
[2018-01-12] MEDS: ATORVASTATIN 20 MG TAB PO SCH (21:49)
[2018-01-12] MEDS: DOCUSATE SODIUM 50 MG/SENNA 8.6 MG TAB PO SCH (21:49)
[2018-01-12] MEDS: SODIUM CHLORIDE 0.9% FLUSH 10 ML FLUSH IV FLUSH SCH (21:50)
[2018-01-12 23:27] VITALS: BP 107/56; PULSE 60; RESP 18; TEMP 100.2; O2SAT 95
[2018-01-13] VITALS (13 sets, daily range): BP systolic 125–155; BP diastolic 53–77; PULSE 57–74; RESP 16–20; TEMP 98–99.4; O2SAT 95–98
[2018-01-13 02:23] LABS: AUTOMATED NEUTROPHIL # 6.2 TH/MM3 (1.8-7.7); BASOPHIL % 0.2 % (0.0-2.0); HEMOGLOBIN 13.7 GM/DL (11.6-15.3); LYMPH % 16.5 % (9.0-44.0); LYMPHOCYTE # 1.4 TH/MM3 (1.0-4.8); MEAN CELL VOLUME 87.1 FL (80.0-100.0); MEAN CORPUSCULAR HEMOGLOBIN 29.8 PG (27.0-34.0); MEAN CORPUSCULAR HGB CONC 34.3 % (32.0-36.0); MEAN PLATELET VOLUME 8.5 FL (7.0-11.0); MONO % 10.9 % (0.0-8.0); MONOCYTE # 0.9 TH/MM3 (0-0.9); NEUT % 72.4 % (16.0-70.0); PLATELET COUNT 198 TH/MM3 (150-450); RED CELL DISTRIBUTION WIDTH 14.7 % (11.6-17.2); WHITE BLOOD COUNT 8.6 TH/MM3 (4.0-11.0)
[2018-01-13] MEDS ORDERED: HEPARIN SODIUM - IV 10,000 UNITS/10 ML VIAL IV PRN ×2 (02:30)
[2018-01-13 02:45] LABS: MAGNESIUM 1.8 MG/DL (1.5-2.5)
[2018-01-13 02:48] LABS: TROPONIN I 0.12 NG/ML (0.02-0.05)
[2018-01-13] MEDS ORDERED: POTASSIUM CHLORIDE 10 MEQ CONTROLLED RELEASE TAB PO ONE (04:00)
--- NOTE | 2018-01-13 04:03 | HHI.HP ---
HPI Service [facility] Primary Care Physician Mukesh Santos MD Admission Diagnosis non-STEMI, hypoglycemia, hypokalemia, inadequate by mouth intake Diagnoses: Chief Complaint: Hypoglycemia hypokalemia Travel History International Travel<30 Days: No Contact w/Intl Traveler <30 Da: No Traveled to Known Affected Are: No History of Present Illness 77-year-old female with a history of CAD, hypertension, diabetes and hyperlipidemia was brought in to the ED after being found lethargic with a blood sugar of 35. Patient is very sleepy at time of examination, glucose checked and found to be 25. D50 given and patient perked back up. She is oriented but does not remember what happened. According to ER report patient's had recently and since then patient has not been eating very well, family checked on her today and called EVAC, when EVAC arrived the patient had a blood sugar of 35, D50 was given. She states she has been taking her medications as prescribed and thought she was eating ok. Upon arrival to the hospital patient was found to have an elevated troponin, but she currently denies any chest pain. She also denies any shortness of breath, fever or chills. Review of Systems Except as stated in HPI: all other systems reviewed are Neg Past Family Social History Past Medical History HTN CAD DM HLD Past Surgical History CABG Reported Medications Reported Meds & Active Scripts Active Reported Potassium Chloride ER (Potassium Chloride) 10 Meq Tab 10 Meq PO DAILY Metoprolol Tartrate 50 Mg Tab 50 Mg PO BID Glimepiride 4 Mg Tab 4 Mg PO DAILY Take with breakfast or first main meal Atorvastatin (Atorvastatin Calcium) 20 Mg Tab 20 Mg PO HS Magnesium Oxide 400 Mg Tab 400 Mg PO DAILY Levothyroxine (Levothyroxine Sodium) 88 Mcg Tab 88 Mcg PO HS Fenofibrate 160 Mg Tab 160 Mg PO DAILY Lisinopril-Hctz 20-25 Mg Tab 1 Tab PO DAILY Aspir-81 (Aspirin) 81 Mg Tabdr 81 Mg PO DAILY Allergies: Coded Allergies: Sulfa (Sulfonamide Antibiotics) (Verified Allergy, Severe, Hives, respiratory distress , 01/12/18) clopidogrel (Verified Adverse Reaction, Severe, Vomiting, 2/16/18) enalaprilat (Verified Adverse Reaction, Severe, Vomiting, 01/12/18) nitrofurantoin (Verified Adverse Reaction, Severe, Vomiting, 01/12/18) tramadol (Verified Adverse Reaction, Severe, Vomiting , 01/12/18) Active Ordered Medications Current Medications Medications (Trade) Dose Ordered Sig/Jose Miguel Route Start Time Stop Time Status Last Admin Potassium Chloride/Sodium Chloride 1,000 ml @ 125 mls/hr Q8H IV 01/12/18 19:30 01/12/18 19:29 (D50w (Vial) Inj) 50 ml UNSCH PRN IV PUSH 01/12/18 20:15 (Glucagon Inj) 1 mg UNSCH PRN OTHER 01/12/18 20:15 (NovoLOG SUPPLEMENTAL SCALE) 1 ACHS SLIDING SCALE SQ 01/12/18 21:00 (Nitroglycerin 2% Oint) 0.5 inch Q6HR PRN TOPICAL 01/12/18 20:15 (NS Flush) 2 ml UNSCH PRN IV FLUSH 01/12/18 20:15 (NS Flush) 2 ml BID IV FLUSH 01/12/18 21:00 01/12/18 21:50 (Zofran Inj) 4 mg Q6H PRN IVP 01/12/18 20:15 (Tylenol) 650 mg Q6H PRN PO 01/12/18 20:15 ([place] 5-325 Mg) 1 tab Q4H PRN PO 01/12/18 20:15 (Morphine Inj) 2 mg Q3H PRN IV PUSH 01/12/18 20:15 (Petrona-Colace) 1 tab BID PO 01/12/18 21:00 01/12/18 21:49 (Milk Of Magnesia Liq) 30 ml Q12H PRN PO 01/12/18 20:15 (Senokot) 17.2 mg Q12H PRN PO 01/12/18 20:15 (Dulcolax Supp) 10 mg DAILY PRN RECTAL 01/12/18 20:15 (Lactulose Liq) 30 ml DAILY PRN PO 01/12/18 20:15 (Ecotrin Ec) 81 mg DAILY PO 01/13/18 09:00 (Lipitor) 20 mg HS PO 01/12/18 21:00 01/12/18 21:49 (Lopressor) 50 mg BID PO 01/12/18 21:00 01/12/18 21:49 (Heparin Inj) 5,000 units UNSCH PRN IV 01/13/18 02:30 (Heparin Inj) 2,500 units UNSCH PRN IV 01/13/18 02:30 Heparin Sodium/ Dextrose 250 ml @ 6 mls/hr TITRATE IV 01/12/18 20:30 01/12/18 22:18 Potassium Chloride 100 ml @ 50 mls/hr Q2H IV 01/13/18 04:00 01/13/18 07:59 Family History Patient denies any family history Social History Patient denies any tobacco, alcohol or illicit drug use Physical Exam Vital Signs Vital Signs Date Time Temp Pulse Resp B/P (MAP) Pulse Ox O2 Delivery O2 Flow Rate FiO2 01/13/18 01:00 98.6 74 20 152/77 (102) 98 01/13/18 01:00 98 Nasal Cannula 2.00 01/13/18 00:23 01/12/18 23:27 100.2 60 18 107/56 (73) 95 Nasal Cannula 01/12/18 19:15 81 16 138/57 (84) 93 Room Air 01/12/18 18:40 18 95 Room Air 01/12/18 18:40 95 Room Air 01/12/18 18:35 99.3 90 16 138/52 (80) 95 Physical Exam GENERAL: This is a well-nourished, well-developed patient, who appears sleepy and comfortable SKIN: No rashes, ecchymoses or lesions. Cool and dry. HEAD: Atraumatic. Normocephalic EYES: Pupils equal round and reactive. Extraocular motions intact. ENT: Nose without bleeding, purulent drainage or septal hematoma. airway patent. NECK: Trachea midline. No JVD or lymphadenopathy. CARDIOVASCULAR: Regular rate and rhythm without murmurs, gallops, or rubs. RESPIRATORY: Diminished bilateral bases, no wheezes or rhonchi GASTROINTESTINAL: Abdomen soft, non-tender, nondistended. No guarding. MUSCULOSKELETAL: Extremities without clubbing, cyanosis, or edema. No joint tenderness, effusion, or edema noted. No calf tenderness. NEUROLOGICAL: Awake and alert. Motor and sensory grossly within normal limits. Normal speech. Laboratory Laboratory Tests Test 01/12/18 18:50 01/12/18 20:37 01/13/18 01:53 White Blood Count 7.9 8.6 Red Blood Count 4.29 4.60 Hemoglobin 12.8 13.7 Hematocrit 37.5 40.0 Mean Corpuscular Volume 87.4 87.1 Mean Corpuscular Hemoglobin 29.8 29.8 Mean Corpuscular Hemoglobin Concent 34.0 34.3 Red Cell Distribution Width 13.5 14.7 Platelet Count 165 198 Mean Platelet Volume 8.1 8.5 Neutrophils (%) (Auto) 89.6 72.4 Lymphocytes (%) (Auto) 7.2 16.5 Monocytes (%) (Auto) 2.4 10.9 Eosinophils (%) (Auto) 0.0 0.0 Basophils (%) (Auto) 0.8 0.2 Neutrophils # (Auto) 7.0 6.2 Lymphocytes # (Auto) 0.6 1.4 Monocytes # (Auto) 0.2 0.9 Eosinophils # (Auto) 0.0 0.0 Basophils # (Auto) 0.1 0.0 CBC Comment DIFF FINAL DIFF FINAL Differential Comment Blood Urea Nitrogen 15 Creatinine 1.20 Random Glucose 263 Total Protein 6.7 Albumin 3.2 Calcium Level 7.6 Magnesium Level 1.8 1.8 Alkaline Phosphatase 43 Aspartate Amino Transf (AST/SGOT) 78 Alanine Aminotransferase (ALT/SGPT) 36 Total Bilirubin 0.4 Sodium Level 131 Potassium Level 2.5 2.8 Chloride Level 96 Carbon Dioxide Level 29.0 Anion Gap 6 Estimat Glomerular Filtration Rate 43 Troponin I 0.11 0.12 Lipase 337 B-Hydroxybutyrate 0.09 Prothrombin Time 11.5 Prothromb Time International Ratio 1.1 Activated Partial Thromboplast Time 22.6 Result Diagram: 01/13/1815201/13/18152 Imaging Last Impressions Head CT 01/12/181827 Signed Impressions: Service Date/Time: Friday, January 12, 2018 19:36 - CONCLUSION: 1. No acute intracranial abnormalities. Petey Harper MD Chest X-Ray 01/12/181827 Signed Impressions: Service Date/Time: Friday, January 12, 2018 18:32 - CONCLUSION: 1. Minimal basilar atelectasis or scarring. No effusion or pneumothorax. MD Jeovany Sami VTE Risk Assessment Caprini VTE Risk Assessment: Mod/High Risk (score >= 2) Caprini Risk Assessment Model Point Value = 1 Point Value = 2 Point Value = 3 Point Value = 5 Age 41-60 Minor surgery BMI > 25 kg/m2 Swollen legs Varicose veins or History of unexplained or recurrent spontaneous Oral contraceptives or hormone replacement Sepsis (< 1 month) Serious lung disease, including pneumonia (< 1 month) Abnormal pulmonary function Acute myocardial infarction Congestive heart failure (< 1 month) History of inflammatory bowel disease Medical patient at bed rest Age 61-74 Arthroscopic surgery Major open surgery (> 45 min) Laparoscopic surgery (> 45 min) Malignancy Confined to bed (> 72 hours) Immobilizing plaster cast Central venous access Age >= 75 History of VTE Family history of VTE Factor V Leiden Prothrombin [id number] Lupus anticoagulant Anticardiolipin antibodies Elevated serum homocysteine Heparin-induced thrombocytopenia Other congenital or acquired thrombophilia Stroke (< 1 month) Elective arthroplasty Hip, pelvis, or leg fracture Acute spinal cord injury (< 1 month) Prophylaxis Regimen Total Risk Factor Score Risk Level Prophylaxis Regimen 0-1 Low Early ambulation 2 Moderate Order ONE of the following: *Sequential Compression Device (SCD) *Heparin 5000 units SQ BID 3-4 Higher Order ONE of the following medications: *Heparin 5000 units SQ TID *Enoxaparin/Lovenox 40 mg SQ daily (WT < 150 kg, CrCl > 30 mL/min) *Enoxaparin/Lovenox 30 mg SQ daily (WT < 150 kg, CrCl > 10-29 mL/min) *Enoxaparin/Lovenox 30 mg SQ BID (WT < 150 kg, CrCl > 30 mL/min) AND/OR *Sequential Compression Device (SCD) 5 or more Highest Order ONE of the following medications: *Heparin 5000 units SQ TID (Preferred with Epidurals) *Enoxaparin/Lovenox 40 mg SQ daily (WT < 150 kg, CrCl > 30 mL/min) *Enoxaparin/Lovenox 30 mg SQ daily (WT < 150 kg, CrCl > 10-29 mL/min) *Enoxaparin/Lovenox 30 mg SQ BID (WT < 150 kg, CrCl > 30 mL/min) AND *Sequential Compression Device (SCD) Assessment and Plan Problem List: (1) Non-STEMI (non-ST elevated myocardial infarction) ICD Code: I21.4 - Non-ST elevation (NSTEMI) myocardial infarction; E16.0 - Drug -induced hypoglycemia without coma Status: Acute (2) Hypoglycemia secondary to sulfonylurea ICD Code: T38.3X1A - Poisoning by insulin and oral hypoglycemic [antidiabetic] drugs, accidental (unintentional), initialencounter; E16.0 - Drug-induced hypoglycemia without coma Status: Acute (3) Inadequate oral nutritional intake ICD Code: R63.8 - Other symptoms and signs concerning food and fluid intake Status: Acute (4) Hypokalemia ICD Code: E87.6 - Hypokalemia; E16.0 - Drug-induced hypoglycemia without coma Status: Acute Assessment and Plan 77-year-old female with a history of CAD, hypertension, diabetes and hyperlipidemia was brought in to the ED after being found lethargic with a blood sugar of 35. Non-STEMI EKG reviewed and shows sinus rhythm with no ST elevation Troponin 0.11, 0.12 -Consult cardiology -Serial troponin, Third troponin pending -Heparin drip ordered -Nitroglycerin for chest pain Acute kidney injury likely secondary to dehydration, creatinine 1.2, baseline 0.7 -IVF for hydration -Avoid nephrotoxins -BMP in a.m. Hypoglycemia secondary to sulfonylurea use and inadequate oral intake -Accu-Cheks, D5 as needed -Hold home medicines for now -Changed IVF to D51/2NS with 20K -Case management consult, patient may need SNF or home health care Hypokalemia, potassium 2.5 -Supplementation ordered, potassium added to IVF, check potassium and replace as needed Hypertension, chronic -Resumed home medications, monitor vitals DVT prophylaxis: SCDs, heparin Discussed Condition With Patient, and RN Physician Certification 2 Midnight Certification Type: Admission for Inpatient Services Order for Inpatient Services The services are ordered in accordance with Medicare regulations or non- Medicare payer requirements, as applicable. In the case of services not specified as inpatient-only, they are appropriately provided as inpatient services in accordance with the 2-midnight benchmark. Estimated LOS (days): 2 days is the estimated time the patient will need to remain in the hospital, assuming treatment plan goals are met and no additional complications. Post-Hospital Plan: Home Divine Krishnan Jan 13, 2018 04:03
[2018-01-13 05:22] LABS: ALBUMIN 3.2 GM/DL (3.4-5.0); AST (GOT) 83 U/L (15-37); BICARBONATE 28.4 MEQ/L (21.0-32.0); BLOOD UREA NITROGEN 11 MG/DL (7-18); CALCIUM 8.2 MG/DL (8.5-10.1); CHLORIDE 107 MEQ/L (98-107); CREATININE 0.69 MG/DL (0.50-1.00); GLOMERULAR FILTRATION RATE 82 ML/MIN (>89); SODIUM (NA) 142 MEQ/L (136-145)
[2018-01-13] MEDS: NS + KCL 20 MEQ INJ 1,000 ML IV SCH (05:22)
[2018-01-13 05:26] LABS: GLUCOSE,RANDOM 25 MG/DL (74-106)
[2018-01-13] MEDS: POTASSIUM CHLOR 20 MEQ PREMIX 100 ML IV SCH ×2 (05:27→06:00)
[2018-01-13] MEDS: DEXTROSE 50% IN WATER 50 ML VIAL(D50) IV PUSH PRN (05:28)
[2018-01-13 05:29] LABS: ALKALINE PHOSPHATASE 40 U/L (45-117); ALT (GPT) 35 U/L (10-53); TOTAL BILIRUBIN ADULT 0.4 MG/DL (0.2-1.0); TOTAL PROTEIN 6.3 GM/DL (6.4-8.2)
[2018-01-13] MEDS: INSULIN ASPART SUPPLEMENTAL SCALE SQ SCH ×3 (08:00→20:41)
[2018-01-13] MEDS: DOCUSATE SODIUM 50 MG/SENNA 8.6 MG TAB PO SCH ×2 (09:00→20:44)
[2018-01-13] MEDS: METOPROLOL TARTRATE 50 MG TAB PO SCH ×2 (09:00→20:44)
[2018-01-13] MEDS: ASPIRIN EC 81 MG TABEC PO SCH (09:16)
[2018-01-13] MEDS: SODIUM CHLORIDE 0.9% FLUSH 10 ML FLUSH IV FLUSH SCH ×2 (09:17→20:45)
[2018-01-13] MEDS: D5-1/2 NS + KCL 20 MEQ INJ 1,000 ML IV SCH (09:17)
--- NOTE | 2018-01-13 13:10 | HHI.PR ---
Subjective Remarks 77-year-old female with a history of CAD, hypertension, diabetes and hyperlipidemia was brought in to the ED after being found lethargic with a blood sugar of 35. Patient is very sleepy at time of examination, glucose checked and found to be 25. D50 given and patient perked back up. She is oriented but does not remember what happened. According to ER report patient's had recently and since then patient has not been eating very well, family checked on her today and called EVAC, when EVAC arrived the patient had a blood sugar of 35, D50 was given. She states she has been taking her medications as prescribed and thought she was eating ok. Upon arrival to the hospital patient was found to have an elevated troponin, but she currently denies any chest pain. She also denies any shortness of breath, fever or chills. 01-13 STILL HAVING ISSUES WITH HYPOGLYCEMIA WILL MONITOR TODAY NEEDS PT AND OT WATCH SUGARS DW RN AND PATIENT AND FAMILY NEEDS SUGARS TO STABILIZE Objective Vitals Vital Signs Date Time Temp Pulse Resp B/P (MAP) Pulse Ox O2 Delivery O2 Flow Rate FiO2 01/13/18 12:10 98 Nasal Cannula 2.00 01/13/18 12:05 98 Nasal Cannula 3.00 01/13/18 12:00 98.0 61 16 149/58 (88) 97 01/13/18 11:00 69 01/13/18 08:00 98.0 61 16 131/60 (83) 97 01/13/18 08:00 97 Nasal Cannula 2.00 01/13/18 07:00 64 01/13/18 04:00 98.2 57 20 155/53 (87) 97 01/13/18 04:00 98 Nasal Cannula 2.00 01/13/18 03:00 67 01/13/18 01:00 70 01/13/18 01:00 98.6 74 20 152/77 (102) 98 01/13/18 01:00 98 Nasal Cannula 2.00 01/13/18 00:23 01/12/18 23:27 100.2 60 18 107/56 (73) 95 Nasal Cannula 01/12/18 19:15 81 16 138/57 (84) 93 Room Air 01/12/18 18:40 18 95 Room Air 01/12/18 18:40 95 Room Air 01/12/18 18:35 99.3 90 16 138/52 (80) 95 I/O 01/12/18 01/12/18 01/12/18 01/13/18 01/13/18 01/13/18 07:00 15:00 23:00 07:00 15:00 23:00 Intake Total 1043 ml Balance 1043 ml Intake Oral 0 ml IV Total 1043 ml # Voids 2 # Bowel Movements 2 Result Diagram: 01/13/18 0153 01/13/18 0420 Other Results Laboratory Tests Test 01/12/18 18:50 01/12/18 20:37 01/13/18 01:53 01/13/18 04:20 White Blood Count 7.9 TH/MM3 8.6 TH/MM3 Red Blood Count 4.29 MIL/MM3 4.60 MIL/MM3 Hemoglobin 12.8 GM/DL 13.7 GM/DL Hematocrit 37.5 % 40.0 % Mean Corpuscular Volume 87.4 FL 87.1 FL Mean Corpuscular Hemoglobin 29.8 PG 29.8 PG Mean Corpuscular Hemoglobin Concent 34.0 % 34.3 % Red Cell Distribution Width 13.5 % 14.7 % Platelet Count 165 TH/MM3 198 TH/MM3 Mean Platelet Volume 8.1 FL 8.5 FL Neutrophils (%) (Auto) 89.6 % 72.4 % Lymphocytes (%) (Auto) 7.2 % 16.5 % Monocytes (%) (Auto) 2.4 % 10.9 % Eosinophils (%) (Auto) 0.0 % 0.0 % Basophils (%) (Auto) 0.8 % 0.2 % Neutrophils # (Auto) 7.0 TH/MM3 6.2 TH/MM3 Lymphocytes # (Auto) 0.6 TH/MM3 1.4 TH/MM3 Monocytes # (Auto) 0.2 TH/MM3 0.9 TH/MM3 Eosinophils # (Auto) 0.0 TH/MM3 0.0 TH/MM3 Basophils # (Auto) 0.1 TH/MM3 0.0 TH/MM3 CBC Comment DIFF FINAL DIFF FINAL Differential Comment Blood Urea Nitrogen 15 MG/DL 11 MG/DL Creatinine 1.20 MG/DL 0.69 MG/DL Random Glucose 263 MG/DL 25 MG/DL Total Protein 6.7 GM/DL 6.3 GM/DL Albumin 3.2 GM/DL 3.2 GM/DL Calcium Level 7.6 MG/DL 8.2 MG/DL Magnesium Level 1.8 MG/DL 1.8 MG/DL Alkaline Phosphatase 43 U/L 40 U/L Aspartate Amino Transf (AST/SGOT) 78 U/L 83 U/L Alanine Aminotransferase (ALT/SGPT) 36 U/L 35 U/L Total Bilirubin 0.4 MG/DL 0.4 MG/DL Sodium Level 131 MEQ/L 142 MEQ/L Potassium Level 2.5 MEQ/L 2.8 MEQ/L 2.7 MEQ/L Chloride Level 96 MEQ/L 107 MEQ/L Carbon Dioxide Level 29.0 MEQ/L 28.4 MEQ/L Anion Gap 6 MEQ/L 7 MEQ/L Estimat Glomerular Filtration Rate 43 ML/MIN 82 ML/MIN Troponin I 0.11 NG/ML 0.12 NG/ML 0.10 NG/ML Lipase 337 U/L B-Hydroxybutyrate 0.09 MMOL/L Prothrombin Time 11.5 SEC Prothromb Time International Ratio 1.1 RATIO Activated Partial Thromboplast Time 22.6 SEC 43.6 SEC Test 01/13/18 10:18 Activated Partial Thromboplast Time 43.2 SEC Imaging Last Impressions Head CT 01/12/181827 Signed Impressions: Service Date/Time: Friday, January 12, 2018 19:36 - CONCLUSION: 1. No acute intracranial abnormalities. Petey Harper MD Chest X-Ray 01/12/181827 Signed Impressions: Service Date/Time: Friday, January 12, 2018 18:32 - CONCLUSION: 1. Minimal basilar atelectasis or scarring. No effusion or pneumothorax. Petey Harper MD Objective Remarks GENERAL: Awake alert oriented talkative and cooperative SKIN: Warm and dry. HEAD: Atraumatic. Normocephalic. EYES: Pupils equal and round. No scleral icterus. No injection or drainage. Extraocular muscles intact ENT: No nasal bleeding or discharge. Mucous membranes pink and moist. Tongue is midline NECK: Trachea midline. No JVD. Supple CARDIOVASCULAR: Regular rate and rhythm. S1 and S2 no S3 or S4 no heave or thrill or rub or gallop RESPIRATORY: No accessory muscle use. Clear to auscultation. Breath sounds equal bilaterally. GASTROINTESTINAL: Abdomen soft, non-tender, nondistended. Hepatic and splenic margins not palpable. MUSCULOSKELETAL: Extremities without clubbing, cyanosis, or edema. No obvious deformities. NEUROLOGICAL: Awake and alert. No obvious cranial nerve deficits. Motor grossly within normal limits. 4 out of 5 muscle strength in the arms and legs. Normal speech. PSYCHIATRIC: Appropriate mood and affect; insight and judgment normal. Procedures NONE Medications and IVs Current Medications Sodium Chloride (NS Flush) 2 ml UNSCH PRN IVF FLUSH AFTER USING IV ACCESS; Start 01/12/18 at 18:30; Stop 01/12/18 at 20:27; Status DC Potassium Chloride (KCl) 20 meq ONCE ONCE PO Last administered on 01/12/18at 19 :29; Start 01/12/18 at 19:30; Stop 01/12/18 at 19:31; Status DC Potassium Chloride/Sodium Chloride 1,000 ml @ 125 mls/hr Q8H IV Last administered on 01/13/18at 05:22; Start 01/12/18 at 19:30; Stop 01/13/18 at 05:31 ; Status DC Dextrose (D50w (Vial) Inj) 50 ml UNSCH PRN IV PUSH HYPOGLYCEMIA-SEE COMMENTS Last administered on 01/13/18at 05:28; Start 01/12/18 at 20:15 Glucagon (Glucagon Inj) 1 mg UNSCH PRN OTHER HYPOGLYCEMIA-SEE COMMENTS; Start 01/12/18 at 20:15 Insulin Aspart (NovoLOG SUPPLEMENTAL SCALE) 1 ACHS SLIDING SCALE SQ ; Start at 21:00 Nitroglycerin (Nitroglycerin 2% Oint) 0.5 inch Q6HR PRN TOPICAL CHEST PAIN; Start 01/12/18 at 20:15 Sodium Chloride 1,000 ml @ 100 mls/hr Q10H IV ; Start 01/12/18 at 20:15; Stop 01/12/18 at 20:24; Status DC Sodium Chloride (NS Flush) 2 ml UNSCH PRN IV FLUSH FLUSH AFTER USING IV ACCESS ; Start 01/12/18 at 20:15 Sodium Chloride (NS Flush) 2 ml BID IV FLUSH Last administered on 01/13/18at 09: 17; Start 01/12/18 at 21:00 Ondansetron HCl (Zofran Inj) 4 mg Q6H PRN IVP NAUSEA OR VOMITING; Start at 20:15 Acetaminophen (Tylenol) 650 mg Q6H PRN PO FEVER/PAIN SCALE 1 TO 2; Start at 20:15 Acetaminophen/ Hydrocodone Bitart ([place] 5-325 Mg) 1 tab Q4H PRN PO PAIN SCALE 3 TO 5; Start 01/12/18 at 20:15 Morphine Sulfate (Morphine Inj) 2 mg Q3H PRN IV PUSH Pain 6-10; Start 01/12/18 at 20:15 Senna/Docusate Sodium ([place]-Colace) 1 tab BID PO Last administered on at 21:49; Start 01/12/18 at 21:00 Magnesium Hydroxide (Milk Of Magnesia Liq) 30 ml Q12H PRN PO Mild constipation ; Start 01/12/18 at 20:15 Sennosides (Senokot) 17.2 mg Q12H PRN PO Moderate constipation; Start 01/12/18 at 20:15 Bisacodyl (Dulcolax Supp) 10 mg DAILY PRN RECTAL SEVERE CONSITIPATION; Start at 20:15 Lactulose (Lactulose Liq) 30 ml DAILY PRN PO SEVERE CONSITIPATION; Start at 20:15 Aspirin (Ecotrin Ec) 81 mg DAILY PO Last administered on 01/13/18at 09:16; Start 01/13/18 at 09:00 Atorvastatin Calcium (Lipitor) 20 mg HS PO Last administered on 01/12/18at 21:49 ; Start 01/12/18 at 21:00 Metoprolol Tartrate (Lopressor) 50 mg BID PO Last administered on 01/12/18at 21: 49; Start 01/12/18 at 21:00 Heparin Sodium (Porcine) (Heparin Inj) 3,000 units ONCE ONCE IV Last administered on 01/12/18at 21:49; Start 01/12/18 at 20:30; Stop 01/12/18 at 20:31 ; Status DC Heparin Sodium (Porcine) (Heparin Inj) 5,000 units UNSCH PRN IV APTT LESS THAN 25; Start 01/13/18 at 02:30 Heparin Sodium (Porcine) (Heparin Inj) 2,500 units UNSCH PRN IV APTT 25 TO 39; Start 01/13/18 at 02:30 Heparin Sodium/ Dextrose 250 ml @ 6 mls/hr TITRATE IV Last administered on 01/12at 22:18; Start 01/12/18 at 20:30 Potassium Chloride (KCl) 40 meq ONCE ONCE PO Last administered on 01/13/18at 09 :16; Start 01/13/18 at 04:00; Stop 01/13/18 at 04:06; Status DC Potassium Chloride 100 ml @ 50 mls/hr Q2H IV Last administered on 01/13/18at 06 :00; Start 01/13/18 at 04:00; Stop 01/13/18 at 07:59; Status DC Potassium Chloride/Dextrose/ Sod Cl 1,000 ml @ 100 mls/hr Q10H IV Last administered on 01/13/18at 09:17; Start 01/13/18 at 05:15 A/P Problem List: (1) Non-STEMI (non-ST elevated myocardial infarction) ICD Code: I21.4 - Non-ST elevation (NSTEMI) myocardial infarction; E16.0 - Drug -induced hypoglycemia without coma Status: Acute (2) Hypoglycemia secondary to sulfonylurea ICD Code: T38.3X1A - Poisoning by insulin and oral hypoglycemic [antidiabetic] drugs, accidental (unintentional), initialencounter; E16.0 - Drug-induced hypoglycemia without coma Status: Acute (3) Inadequate oral nutritional intake ICD Code: R63.8 - Other symptoms and signs concerning food and fluid intake Status: Acute (4) Hypokalemia ICD Code: E87.6 - Hypokalemia; E16.0 - Drug-induced hypoglycemia without coma Status: Acute Assessment and Plan 77-year-old female with a history of CAD, hypertension, diabetes and hyperlipidemia was brought in to the ED after being found lethargic with a blood sugar of 35. Non-STEMI EKG reviewed and shows sinus rhythm with no ST elevation Troponin 0.11, 0.12 -Consult cardiology -Serial troponin, Third troponin -Heparin drip ordered -Nitroglycerin for chest pain Acute kidney injury likely secondary to dehydration, creatinine 1.2, baseline 0.7 -IVF for hydration -Avoid nephrotoxins -BMP in a.m. Hypoglycemia secondary to sulfonylurea use and inadequate oral intake -Accu-Cheks, D5 as needed -Hold home medicines for now -Changed IVF to D51/2NS with 20K -Case management consult, patient may need SNF or home health care Hypokalemia, potassium 2.5 -Supplementation ordered, potassium added to IVF, check potassium and replace as needed Hypertension, chronic -Resumed home medications, monitor vitals DVT prophylaxis: SCDs, heparin Discharge Planning PENDING GLUCOSE IMPROVEMENT KEITH RN AND PT AND FAMILY Jamar Belcehr DO Jan 13, 2018 13:10
[2018-01-13] MEDS ORDERED: ACETAMINOPHEN 325 MG TAB PO PRN (13:15)
[2018-01-13] MEDS ORDERED: POTASSIUM CHLORIDE 20 MEQ CONTROLLED RELEASE TAB PO ONE (13:15)
[2018-01-13] MEDS: MAGNESIUM SULFATE 1 GM PREMIX 100 ML IV SCH ×2 (14:15→14:21)
[2018-01-13] MEDS: FENOFIBRATE 145 MG TAB PO SCH (14:21)
[2018-01-13] MEDS: MAGNESIUM OXIDE 400 MG TAB PO SCH (14:22)
--- NOTE | 2018-01-13 14:41 | EKG ---
Date Performed: 01/12/2018 Time Performed: 18:43:42 PTAGE: 77 years EKG: Sinus rhythm LEFT ATRIAL ENLARGEMENT MODERATE INTRAVENTRICULAR CONDUCTION DELAY NONSPECIFIC ST & T-WAVE ABNORMALI TY ABNORMAL ECG Since PREVIOUS TRACING , no significant change noted PREVIOUS TRACIN07/09/2012 09.55 DOCTOR: Hira Mead Interpretating Date/Time 01/13/2018 14:39:41
--- NOTE | 2018-01-13 16:53 | ECHRPT ---
Indication: Nonrheumatic aortic (valve) stenosis CONCLUSIONS The left ventricular systolic function is normal with an estimated ejection fraction in the range of 55-60%. Wall thickness is normal. Normal left ventricular size. Mild mitral annular calcification. Pleu-ak-npdansor mitral valve regurgitation. The left atrial size is qocn-qk-yctyqmwema dilated. Severe aortic valve stenosis. Aortic valve area is 0.72 cm. Aortic valve mean gradient is 42 mmHg. There is moderate tricuspid regurgitation. The estimated pulmonary arterial pressure is 44.3 mmHg. mitral valve peak gradient = 14 mm hg suggestive of at least mild mitral stenosis BP: / HR: Rhythm: Sinus MEASUREMENTS (Male / Female) Normal Values Technical Quality:Fair 2D ECHO LV Diastolic Diameter PLAX 3.8 cm 4.2 - 5.9 / 3.9 - 5.3 cm LV Systolic Diameter PLAX 2.9 cm IVS Diastolic Thickness 0.7 cm 0.6 - 1.0 / 0.6 - 0.9 cm LVPW Diastolic Thickness 0.8 cm 0.6 - 1.0 / 0.6 - 0.9 cm LV Relative Wall Thickness 0.4 LVOT Diameter 1.9 cm M-MODE Aortic Root Diameter MM 2.6 cm LA Systolic Diameter MM 4.7 cm LA Ao Ratio MM 1.8 AV Cusp Separation MM 1.6 cm DOPPLER AV Peak Velocity 382.2 cm/s AV Peak Gradient 58.4 mmHg AV Mean Gradient 42.0 mmHg AV Velocity Time Integral 83.8 cm AI Peak Velocity 398.5 cm/s AI Peak Gradient 63.5 mmHg AI Pressure Half Time 439.0 ms LVOT Peak Velocity 96.9 cm/s LVOT Peak Gradient 3.8 mmHg AV Area Cont Eq pk 0.7 cm MR Peak Velocity 536.5 cm/s MR Peak Gradient 115.1 mmHg Mitral E Point Velocity 160.0 cm/s Mitral A Point Velocity 189.0 cm/s Mitral E to A Ratio 0.8 LV E' Lateral Velocity 3.9 cm/s Mitral E to LV E' Lateral Ratio 41.0 LV E' Septal Velocity 4.5 cm/s Mitral E to LV E' Septal Ratio 35.7 TR Peak Velocity 293.0 cm/s TR Peak Gradient 34.3 mmHg Right Atrial Pressure 10.0 mmHg Pulmonary Artery Systolic Pressu 44.3 mmHg Right Ventricular Systolic Press 44.3 mmHg PV Peak Velocity 251.0 cm/s PV Peak Gradient 25.2 mmHg FINDINGS LEFT VENTRICLE The left ventricular systolic function is normal with an estimated ejection fraction in the range of 55-60%. Wall thickness is normal. Normal left ventricular size. RIGHT VENTRICLE Normal right ventricular size and systolic function. LEFT ATRIUM The left atrial size is xads-qo-zmfafcfqog dilated. RIGHT ATRIUM The right atrial size is normal. ATRIAL SEPTUM Normal atrial septal thickness without atrial level shunting by limited color doppler interrogation. AORTA The aortic root and proximal ascending aorta are normal in size on limited imaging. MITRAL VALVE Mild mitral annular calcification. Kcwr-qu-rwwninbi mitral valve regurgitation. AORTIC VALVE Severe aortic valve stenosis. Aortic valve area is 0.72 cm. Aortic valve mean gradient is 42 mmHg. TRICUSPID VALVE There is moderate tricuspid regurgitation. The estimated pulmonary arterial pressure is 44.3 mmHg. PULMONARY VALVE No pulmonary valve regurgitation or stenosis. VESSELS The inferior vena cava is normal in size. PERICARDIUM No pericardial effusion. Hira Mead MD, FACC, [facility] [place] ([place]ronically Signed[place] Final Date:13 January 2018 16:52
--- NOTE | 2018-01-13 17:30 | MB ---
cc: DANILO MARX M.D. DATE OF CONSULTATION: 01/13/2018. REASON FOR CONSULTATION: Evaluation of elevated troponin. HISTORY OF PRESENT ILLNESS: Micaela Candelaria is a 77-year-old female previously known to my retired associate, Dr. Baca. The patient has known heart disease but has not had followup in some time. Her last office visit with Dr. Baca was July 07, 2014. The patient is known to have ischemic heart disease. She has had previous bypass surgery. I have a copy of her cardiac catheterization report from March 29, [address] Watson. At that time, her ejection fraction was 70%. There was a small aortic valve gradient not sufficient to warrant aortic valve replacement. At that time her left main had only irregularities. Her LAD was severely diseased in multiple segments, both the proximal, mid and distal segments making revascularization somewhat complicated. Her circumflex artery had 80-90% stenosis of the second obtuse marginal branch. The right coronary artery has severe proximal disease and then there was 40% to 50% disease of the posterolateral vessel and diffuse disease of the posterior ascending artery branch. She underwent three-vessel coronary artery bypass graft following that. I do not have the operative note. Over the years, she has developed increased gradients across her aortic valve. Her last echo Doppler study that I have a copy of dates back to December 21, 2015. At that time, she had mild LVH with an ejection fraction of 70%. The aortic valve was moderately calcified with a mean gradient of 34 mm and a peak gradient of 64 mm and a moderate degree of aortic regurgitation. The patient has not had cardiology follow up. Her had lung cancer and in March of this year and that may have something to do with why she was not getting regular followup. She is also known to have peripheral arterial disease. When she walks very far, she complains of pain in her muscles of her legs and this would fit with her that history. She had an CRIS study in 2013. Her right CRIS was 0.7 and her left CRIS was 1.0. Her daughter is now living with her. The patient claims to be more active and the daughter agrees. She will walk in the house and occasionally walks out of the house but no long distances. If she walks far, she will have some shortness of breath although the patient denies it. She denies any chest discomfort, chest tightness, chest squeezing or anything that I construe as activity. Per the daughter, her activity level has decreased over time. She comes in now because of profound hypoglycemia that has actually recurred while in the hospital and she is receiving intravenous glucose solutions and is being encouraged to eat. She has been on Glyburide in the past. PAST MEDICAL HISTORY: Her past medical history includes: 1. Aortic valve disease. 2. Coronary artery disease. 3. Type 2 diabetes. 4. Hypertension. PAST SURGICAL HISTORY: Her past surgical history includes: 1. Appendectomy. 2. Left breast biopsy. 3. Cholecystectomy. 4. Coronary artery bypass grafting. MEDICATIONS: Her medication list is charted and similar to what she was on in 2014 except I do not see the JANAE inhibitor on it. 1. She is on metoprolol 50 twice a day. 2. Dual lipid therapy with atorvastatin 20 milligrams and fenofibrate 145 milligrams. 3. Aspirin 81 milligrams. 4. She is received potassium for a low potassium level. SOCIAL HISTORY: She is . She is a former smoker. She is retired. REVIEW OF SYSTEMS: Her review of systems is otherwise negative. PHYSICAL EXAMINATION: GENERAL: Physical exam shows an elderly alert and oriented white female in no acute distress. VITAL SIGNS: Her blood pressure has been stable. She is in sinus rhythm on the monitor. HEAD, EYES, EARS, NOSE, THROAT: Unremarkable. NECK: The neck exam shows radiation of the aortic stenosis, ___ murmurs both carotids. CHEST: Her chest is clear to auscultation. CARDIAC: Exam shows a normal S1, mildly diminished S2 and a fairly prominent 2-3/6 severe aortic stenosis murmur. ABDOMEN: The abdomen is soft. I do not appreciate any aortic aneurysm. Femoral pulses are intact without bruits. EXTREMITIES: Her pedal pulses are severely diminished. I could only really appreciate a slight pulse in the left dorsalis pedis region. EKGS: Her electrocardiogram yesterday evening demonstrates sinus rhythm, left atrial abnormality with nonspecific S-T-T wave changes. LABORATORY STUDIES: Her laboratories show hematocrit of 40, normal white count, normal platelet count. Potassium is low and is in the process of being repleted and it was 2.7 this morning. Glucose is low and that is being repleted as well. Troponins have been 0.11, 0.12, 0.10, essentially flat. Creatinine has come down from 1.2 now to 0.69. IMPRESSION: This is an elderly 77-year-old white female who comes in with profound hypoglycemia currently in an ICU bed. She has known coronary disease. She has known aortic stenosis, and I suspect that it is severe, I have taken a careful history and really cannot elicit any symptoms of angina, heart failure, syncope, etc. from the valve but the patient has been slowing down. I am planning to get a stat echocardiogram today so we can get a better idea on the severity of the aortic stenosis. Discussed with the patient the possibility of having a cardiac catheterization. I am leaving town on Monday so I have given some thought to doing that tomorrow but she is not interested in that. She is not currently unstable and these are problems that have been existing long before this admission to the hospital. I do not think the elevation of the troponin represents acute coronary syndrome because the troponin curve is fairly flat and she has not had any anginal symptoms prior to this admission. Having increased LV mass from aortic stenosis could potentially account for the slightly elevated troponins. I doubt she has acute coronary syndrome. From my perspective, the heparin drip can be turned off. Further therapy be determined. MD DWIGHT Rosas/SERAFIN /2:59 PM /5:09 PM
[2018-01-13] MEDS ORDERED: RESP: ALBUTEROL 2.5 MG/IPRATROPIUM 0.5 MG NEB (PRN) NEB (20:30)
[2018-01-13] MEDS: ATORVASTATIN 20 MG TAB PO SCH (20:44)
[2018-01-13] MEDS ORDERED: LEVOTHYROXINE SODIUM 88 MCG TAB PO SCH (21:00)
[2018-01-13] MEDS: BENZONATATE 100 MG CAP PO PRN (21:09)
[2018-01-13] MEDS: RESP: ALBUTEROL 2.5 MG/IPRATROPIUM 0.5 MG NEB (SCH) NEB (21:33)
[2018-01-13 23:02] LABS: BACTERIA, URINE OCC /hpf; BILIRUBIN, URINE NEG (NEG); BLOOD, URINE TRACE (NEG); GLUCOSE,URINE NEG (NEG); KETONE, URINE NEG (NEG); MUCUS URINE FEW /lpf (OCC); NITRITE,URINE NEG (NEG); PH, URINE 6.5 (5.0-8.5); SQUAMOUS EPITHELIAL CELL URINE 1 /hpf (0-5); URINE COLOR LIGHT-YELLOW (YELLW/STRAW); URINE LEUKOCYTE ESTERASE LARGE (NEG)
[2018-01-14] VITALS (18 sets, daily range): BP systolic 122–153; BP diastolic 50–79; PULSE 62–84; RESP 16–20; TEMP 98–98.9; O2SAT 94–99
[2018-01-14] MEDS: D5-1/2 NS + KCL 20 MEQ INJ 1,000 ML IV SCH ×2 (01:15→12:45)
[2018-01-14] MEDS: RESP: ALBUTEROL 2.5 MG/IPRATROPIUM 0.5 MG NEB (SCH) NEB ×4 (04:03→20:53)
[2018-01-14 06:29] LABS: AUTOMATED NEUTROPHIL # 3.9 TH/MM3 (1.8-7.7); BASOPHIL % 0.3 % (0.0-2.0); EOSINOPHIL % 0.2 % (0.0-4.0); HEMATOCRIT 37.7 % (35.0-46.0); HEMOGLOBIN 12.9 GM/DL (11.6-15.3); LYMPH % 19.3 % (9.0-44.0); MEAN CELL VOLUME 87.6 FL (80.0-100.0); MEAN CORPUSCULAR HGB CONC 34.3 % (32.0-36.0); MEAN PLATELET VOLUME 8.2 FL (7.0-11.0); MONO % 8.3 % (0.0-8.0); MONOCYTE # 0.4 TH/MM3 (0-0.9); NEUT % 71.9 % (16.0-70.0); PLATELET COUNT 156 TH/MM3 (150-450); RED BLOOD COUNT 4.31 MIL/MM3 (4.00-5.30); WHITE BLOOD COUNT 5.4 TH/MM3 (4.0-11.0)
[2018-01-14 06:42] LABS: ALBUMIN 3.1 GM/DL (3.4-5.0); AST (GOT) 75 U/L (15-37); BICARBONATE 26.2 MEQ/L (21.0-32.0); BLOOD UREA NITROGEN 8 MG/DL (7-18); CALCIUM 8.2 MG/DL (8.5-10.1); CHLORIDE 110 MEQ/L (98-107); CREATININE 0.74 MG/DL (0.50-1.00); GLOMERULAR FILTRATION RATE 76 ML/MIN (>89); GLUCOSE,RANDOM 101 MG/DL (74-106); SODIUM (NA) 143 MEQ/L (136-145)
[2018-01-14 07:11] LABS: ALKALINE PHOSPHATASE 39 U/L (45-117); ALT (GPT) 37 U/L (10-53); FREE T4 0.96 NG/DL (0.76-1.46); PHOSPHORUS 1.2 MG/DL (2.5-4.9); TOTAL BILIRUBIN ADULT 0.3 MG/DL (0.2-1.0); TOTAL PROTEIN 6.2 GM/DL (6.4-8.2)
[2018-01-14] MEDS: INSULIN ASPART SUPPLEMENTAL SCALE SQ SCH ×4 (07:23→21:00)
[2018-01-14] MEDS: FENOFIBRATE 145 MG TAB PO SCH (08:08)
[2018-01-14] MEDS: MAGNESIUM OXIDE 400 MG TAB PO SCH (08:09)
[2018-01-14] MEDS: SODIUM CHLORIDE 0.9% FLUSH 10 ML FLUSH IV FLUSH SCH ×2 (08:09→21:21)
[2018-01-14] MEDS: METOPROLOL TARTRATE 50 MG TAB PO SCH ×2 (08:09→21:21)
[2018-01-14] MEDS: BENZONATATE 100 MG CAP PO PRN ×2 (08:09→16:36)
[2018-01-14] MEDS: DOCUSATE SODIUM 50 MG/SENNA 8.6 MG TAB PO SCH ×2 (08:09→21:21)
[2018-01-14] MEDS: ASPIRIN EC 81 MG TABEC PO SCH (08:09)
[2018-01-14 09:10] LABS: HEMOGLOBIN A1C 5.9 % (4.3-6.0)
[2018-01-14] MEDS ORDERED: NON-FORMULARY DRUG (Lisinopril-Hctz 1 TAB) PO SCH (09:45)
--- NOTE | 2018-01-14 09:54 | HHI.PR ---
Subjective Remarks The patient states that her blood sugar is generally well-controlled at home. She says she is not sure if she has COPD. She has had a very bad cough recently. She wants to go home soon. She says she does not want a heart catheterization. Discussed with nursing at the bedside. Objective Vitals Vital Signs Date Time Temp Pulse Resp B/P (MAP) Pulse Ox O2 Delivery O2 Flow Rate FiO2 01/14/18 08:53 99 Nasal Cannula 2.00 01/14/18 08:00 95 Room Air 01/14/18 07:54 98.4 62 18 131/57 (81) 94 01/14/18 07:00 68 01/14/18 04:04 94 21 01/14/18 04:00 95 Room Air 01/14/18 03:00 74 01/14/18 03:00 98.9 74 20 122/60 (80) 94 01/14/18 02:00 73 01/13/18 23:00 98.9 66 20 129/54 (79) 95 01/13/18 23:00 66 01/13/18 23:00 97 Room Air 01/13/18 21:35 97 01/13/18 19:00 73 01/13/18 19:00 96 Room Air 01/13/18 19:00 99.4 73 20 134/62 (86) 96 01/13/18 15:58 98 Nasal Cannula 2.00 01/13/18 15:55 98.5 71 18 125/58 (80) 97 01/13/18 15:00 71 01/13/18 12:10 98 Nasal Cannula 2.00 01/13/18 12:05 98 Nasal Cannula 3.00 01/13/18 12:00 98.0 61 16 149/58 (88) 97 01/13/18 11:00 69 I/O 01/13/18 01/13/18 01/13/18 01/14/18 01/14/18 01/14/18 07:00 15:00 23:00 07:00 15:00 23:00 Intake Total 1043 ml 3308 ml 1360 ml Output Total 1000 ml 850 ml Balance 1043 ml 2308 ml 510 ml Intake Oral 0 ml 1400 ml 360 ml IV Total 1043 ml 1908 ml 1000 ml Output Urine Total 1000 ml 850 ml # Voids 2 # Bowel Movements 2 5 1 Result Diagram: 01/14/18 0601 01/14/18 0601 Imaging Last Impressions Head CT 01/12/181827 Signed Impressions: Service Date/Time: Friday, January 12, 2018 19:36 - CONCLUSION: 1. No acute intracranial abnormalities. Petey Harper MD Chest X-Ray 01/12/181827 Signed Impressions: Service Date/Time: Friday, January 12, 2018 18:32 - CONCLUSION: 1. Minimal basilar atelectasis or scarring. No effusion or pneumothorax. Petey Harper MD Objective Remarks GENERAL: This is a well-nourished, well-developed patient, coughing. SKIN: No rashes, ecchymoses or lesions. Cool and dry. HEAD: Atraumatic. Normocephalic EYES: Pupils equal round and reactive. Extraocular motions intact. ENT: Nose without bleeding, purulent drainage or septal hematoma. airway patent. NECK: Trachea midline. No JVD or lymphadenopathy. CARDIOVASCULAR: Regular rate and rhythm without murmurs, gallops, or rubs. RESPIRATORY: Diminished bilateral bases, no wheezes or rhonchi GASTROINTESTINAL: Abdomen soft, non-tender, nondistended. No guarding. MUSCULOSKELETAL: Extremities without clubbing, cyanosis, or edema. No joint tenderness, effusion, or edema noted. NEUROLOGICAL: Awake and alert. Motor and sensory grossly within normal limits. Normal speech. PSYCH: Mood and affect appropriate. Procedures NONE Medications and IVs Current Medications Medications (Trade) Dose Ordered Sig/Jose Miguel Route Start Time Stop Time Status Last Admin (D50w (Vial) Inj) 50 ml UNSCH PRN IV PUSH 01/12/18 20:15 01/13/18 05:28 (Glucagon Inj) 1 mg UNSCH PRN OTHER 01/12/18 20:15 (NovoLOG SUPPLEMENTAL SCALE) 1 ACHS SLIDING SCALE SQ 01/12/18 21:00 (Nitroglycerin 2% Oint) 0.5 inch Q6HR PRN TOPICAL 01/12/18 20:15 (NS Flush) 2 ml UNSCH PRN IV FLUSH 01/12/18 20:15 (NS Flush) 2 ml BID IV FLUSH 01/12/18 21:00 01/14/18 08:09 (Zofran Inj) 4 mg Q6H PRN IVP 01/12/18 20:15 (Tylenol) 650 mg Q6H PRN PO 01/12/18 20:15 ([facility] 5-325 Mg) 1 tab Q4H PRN PO 01/12/18 20:15 (Morphine Inj) 2 mg Q3H PRN IV PUSH 01/12/18 20:15 (Petrona-Colace) 1 tab BID PO 01/12/18 21:00 01/13/18 20:44 (Milk Of Magnesia Liq) 30 ml Q12H PRN PO 01/12/18 20:15 (Senokot) 17.2 mg Q12H PRN PO 01/12/18 20:15 (Dulcolax Supp) 10 mg DAILY PRN RECTAL 01/12/18 20:15 (Lactulose Liq) 30 ml DAILY PRN PO 01/12/18 20:15 (Ecotrin Ec) 81 mg DAILY PO 01/13/18 09:00 01/14/18 08:09 (Lipitor) 20 mg HS PO 01/12/18 21:00 01/13/18 20:44 (Lopressor) 50 mg BID PO 01/12/18 21:00 01/14/18 08:09 Potassium Chloride/Dextrose/ Sod Cl 1,000 ml @ 100 mls/hr Q10H IV 01/13/18 05:15 01/14/18 01:15 (Tylenol) 650 mg Q4H PRN PO 01/13/18 13:15 (Synthroid) 88 mcg HS PO 01/13/18 21:00 01/13/18 20:44 (Mag-Ox) 400 mg DAILY PO 01/13/18 13:15 01/14/18 08:09 (Tricor) 145 mg DAILY PO 01/13/18 13:15 01/14/18 08:08 (Duoneb Neb) 1 ampule Q6HR NEB NEB 01/13/18 22:00 01/14/18 08:53 (Duoneb Neb) 1 ampule Q2HR NEB PRN NEB 01/13/18 20:30 (Tessalon) 100 mg Q8HR PRN PO 01/13/18 20:30 01/14/18 08:09 A/P Problem List: (1) Non-STEMI (non-ST elevated myocardial infarction) ICD Code: I21.4 - Non-ST elevation (NSTEMI) myocardial infarction; E16.0 - Drug -induced hypoglycemia without coma Status: Acute (2) Hypoglycemia secondary to sulfonylurea ICD Code: T38.3X1A - Poisoning by insulin and oral hypoglycemic [antidiabetic] drugs, accidental (unintentional), initialencounter; E16.0 - Drug-induced hypoglycemia without coma Status: Acute (3) Inadequate oral nutritional intake ICD Code: R63.8 - Other symptoms and signs concerning food and fluid intake Status: Acute (4) Hypokalemia ICD Code: E87.6 - Hypokalemia; E16.0 - Drug-induced hypoglycemia without coma Status: Acute Assessment and Plan 77-year-old female with a history of CAD, hypertension, diabetes and hyperlipidemia was brought in to the ED after being found lethargic with a blood sugar of 35. NSTEMI EKG reviewed and shows sinus rhythm with no ST elevation. Troponin peaked at 0.12. Cardiology consult appreciated. S/p heparin gtt. - Continue cardiac regimen. - Telemetry. - Follow up with cardiology. Acute kidney injury Likely secondary to dehydration. Resolved with fluids. - IVFs. - Avoid nephrotoxins and follow BMP. - Resume lisinopril. Continue to hold hydrochlorothiazide. Hypoglycemia Secondary to sulfonylurea use and inadequate oral intake. Improving. - Accu-Cheks. - Decrease D5 to 50 mls/hour. - Hold glipizide. - Check a hemoglobin A1c. Hypokalemia Potassium 2.5. Improved. - Supplementation ordered, potassium added to IVF, check potassium and replace as needed. - telemetry. Cough The patient's cough is quite bothersome. Chest x-ray unremarkable. - Tessalon Perles as needed. - Check a flu swab. Hypothyroidism TSH markedly elevated over 40. - Increase levothyroxine dose to 100 g daily. - Outpatient follow-up. DVT prophylaxis: SCDs, heparin Discharge Planning Transfer out of ICU once blood sugar has stabilized off of D5 Yonatan Borges DO Jan 14, 2018 09:54
[2018-01-14] MEDS ORDERED: POTASSIUM PHOSPHATE INJ 30 MMOL in SODIUM CHLOR 0.9% 250 ML INJ 250 ML IV ONE (11:00)
[2018-01-14] MEDS: LISINOPRIL 20 MG TAB PO SCH (12:50)
--- NOTE | 2018-01-14 13:24 | PD.CARD.PN ---
Subjective Subjective Remarks No complaints except asking when she should go home. 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 Discussed with daughter needs to take her car keys and car from her. Objective Medications Current Medications Medications (Trade) Dose Ordered Sig/Jose Miguel Route Start Time Stop Time Status Last Admin (D50w (Vial) Inj) 50 ml UNSCH PRN IV PUSH 01/12/18 20:15 01/13/18 05:28 (Glucagon Inj) 1 mg UNSCH PRN OTHER 01/12/18 20:15 (NovoLOG SUPPLEMENTAL SCALE) 1 ACHS SLIDING SCALE SQ 01/12/18 21:00 (Nitroglycerin 2% Oint) 0.5 inch Q6HR PRN TOPICAL 01/12/18 20:15 (NS Flush) 2 ml UNSCH PRN IV FLUSH 01/12/18 20:15 (NS Flush) 2 ml BID IV FLUSH 01/12/18 21:00 01/14/18 08:09 (Zofran Inj) 4 mg Q6H PRN IVP 01/12/18 20:15 (Tylenol) 650 mg Q6H PRN PO 01/12/18 20:15 ([place] 5-325 Mg) 1 tab Q4H PRN PO 01/12/18 20:15 (Morphine Inj) 2 mg Q3H PRN IV PUSH 01/12/18 20:15 (Petrona-Colace) 1 tab BID PO 01/12/18 21:00 01/13/18 20:44 (Milk Of Magnesia Liq) 30 ml Q12H PRN PO 01/12/18 20:15 (Senokot) 17.2 mg Q12H PRN PO 01/12/18 20:15 (Dulcolax Supp) 10 mg DAILY PRN RECTAL 01/12/18 20:15 (Lactulose Liq) 30 ml DAILY PRN PO 01/12/18 20:15 (Ecotrin Ec) 81 mg DAILY PO 01/13/18 09:00 01/14/18 08:09 (Lipitor) 20 mg HS PO 01/12/18 21:00 01/13/18 20:44 (Lopressor) 50 mg BID PO 01/12/18 21:00 01/14/18 08:09 Potassium Chloride/Dextrose/ Sod Cl 1,000 ml @ 50 mls/hr Q20H IV 01/13/18 05:15 01/14/18 12:45 (Tylenol) 650 mg Q4H PRN PO 01/13/18 13:15 (Mag-Ox) 400 mg DAILY PO 01/13/18 13:15 01/14/18 08:09 (Tricor) 145 mg DAILY PO 01/13/18 13:15 01/14/18 08:08 (Duoneb Neb) 1 ampule Q6HR NEB NEB 01/13/18 22:00 01/14/18 08:53 (Duoneb Neb) 1 ampule Q2HR NEB PRN NEB 01/13/18 20:30 (Synthroid) 100 mcg HS PO 01/14/18 21:00 Potassium Phosphate 30 mmol/ Sodium Chloride 260 ml @ 43.333 mls/ hr ONCE ONCE IV 01/14/18 11:00 01/14/18 16:59 01/14/18 12:50 (Tessalon) 200 mg TID PRN PO 01/14/18 09:45 (Prinivil) 20 mg DAILY PO 01/14/18 11:00 01/14/18 12:50 Vital Signs / I&O Vital Signs Date Time Temp Pulse Resp B/P (MAP) Pulse Ox O2 Delivery O2 Flow Rate FiO2 01/14/18 11:37 98.4 62 18 136/54 (81) 94 01/14/18 08:53 99 Nasal Cannula 2.00 01/14/18 08:00 95 Room Air 01/14/18 07:54 98.4 62 18 131/57 (81) 94 01/14/18 07:00 68 01/14/18 04:04 94 21 01/14/18 04:00 95 Room Air 01/14/18 03:00 74 01/14/18 03:00 98.9 74 20 122/60 (80) 94 01/14/18 02:00 73 01/13/18 23:00 98.9 66 20 129/54 (79) 95 01/13/18 23:00 66 01/13/18 23:00 97 Room Air 01/13/18 21:35 97 01/13/18 19:00 73 01/13/18 19:00 96 Room Air 01/13/18 19:00 99.4 73 20 134/62 (86) 96 01/13/18 15:58 98 Nasal Cannula 2.00 01/13/18 15:55 98.5 71 18 125/58 (80) 97 01/13/18 15:00 71 I/O 01/13/18 01/13/18 01/13/18 01/14/18 01/14/18 01/14/18 07:00 15:00 23:00 07:00 15:00 23:00 Intake Total 1043 ml 3308 ml 1360 ml Output Total 1000 ml 850 ml Balance 1043 ml 2308 ml 510 ml Intake Oral 0 ml 1400 ml 360 ml IV Total 1043 ml 1908 ml 1000 ml Output Urine Total 1000 ml 850 ml # Voids 2 # Bowel Movements 2 5 1 Physical Exam Alert Chest CTA CV S1S2 nl RRR with severe murmur No edema. Echo confirms severe Laboratory Laboratory Tests Test 01/13/18 22:00 01/14/18 06:01 Urine Color LIGHT-YELLOW Urine Turbidity HAZY Urine pH 6.5 Urine Specific [place] 1.007 Urine Protein NEG mg/dL Urine Glucose (UA) NEG mg/dL Urine Ketones NEG mg/dL Urine Occult Blood TRACE Urine Nitrite NEG Urine Bilirubin NEG Urine Urobilinogen LESS THAN 2.0 MG/DL Urine Leukocyte Esterase LARGE Urine RBC LESS THAN 1 /hpf Urine WBC 46 /hpf Urine Squamous Epithelial Cells 1 /hpf Urine Bacteria OCC /hpf Urine Mucus FEW /lpf Microscopic Urinalysis Comment CULTURE INDICATED White Blood Count 5.4 TH/MM3 Red Blood Count 4.31 MIL/MM3 Hemoglobin 12.9 GM/DL Hematocrit 37.7 % Mean Corpuscular Volume 87.6 FL Mean Corpuscular Hemoglobin 30.0 PG Mean Corpuscular Hemoglobin Concent 34.3 % Red Cell Distribution Width 15.0 % Platelet Count 156 TH/MM3 Mean Platelet Volume 8.2 FL Neutrophils (%) (Auto) 71.9 % Lymphocytes (%) (Auto) 19.3 % Monocytes (%) (Auto) 8.3 % Eosinophils (%) (Auto) 0.2 % Basophils (%) (Auto) 0.3 % Neutrophils # (Auto) 3.9 TH/MM3 Lymphocytes # (Auto) 1.0 TH/MM3 Monocytes # (Auto) 0.4 TH/MM3 Eosinophils # (Auto) 0.0 TH/MM3 Basophils # (Auto) 0.0 TH/MM3 CBC Comment DIFF FINAL Differential Comment Activated Partial Thromboplast Time 27.6 SEC Blood Urea Nitrogen 8 MG/DL Creatinine 0.74 MG/DL Random Glucose 101 MG/DL Total Protein 6.2 GM/DL Albumin 3.1 GM/DL Calcium Level 8.2 MG/DL Phosphorus Level 1.2 MG/DL Magnesium Level 2.0 MG/DL Alkaline Phosphatase 39 U/L Aspartate Amino Transf (AST/SGOT) 75 U/L Alanine Aminotransferase (ALT/SGPT) 37 U/L Total Bilirubin 0.3 MG/DL Sodium Level 143 MEQ/L Potassium Level 3.6 MEQ/L Chloride Level 110 MEQ/L Carbon Dioxide Level 26.2 MEQ/L Anion Gap 7 MEQ/L Estimat Glomerular Filtration Rate 76 ML/MIN Hemoglobin A1c 6.0 % Free Thyroxine 0.96 NG/DL Thyroid Stimulating Hormone 3rd Gen 47.800 uIU/ML Assessment and Plan Problem List: (1) Severe aortic stenosis ICD Codes: I35.0 - Nonrheumatic aortic (valve) stenosis (2) Elevated troponin ICD Codes: R74.8 - Abnormal levels of other serum enzymes Plan: Doubt ACS (3) CAD (coronary artery disease) ICD Codes: I25.10 - Atherosclerotic heart disease of platinum coronary artery without angina pectoris (4) Hypoglycemia secondary to sulfonylurea ICD Codes: T38.3X1A - Poisoning by insulin and oral hypoglycemic [antidiabetic ] drugs, accidental (unintentional), initialencounter; E16.0 - Drug-induced hypoglycemia without coma Status: Acute Assessment and Plan I would like to see her as an outpatient after she has regained her strength and then can discuss cardiac cath, possible AVR. I will be OOT starting tomorrow. Please call [facility] prn. OK with me to discharge once glucose stable and ambulating OK. Discussed Condition With daughter MilTin MD Jan 14, 2018 13:24
[2018-01-14] MEDS: LEVOTHYROXINE SODIUM 100 MCG TAB PO SCH (21:21)
[2018-01-14] MEDS: ATORVASTATIN 20 MG TAB PO SCH (21:21)
[2018-01-15] VITALS (26 sets, daily range): BP systolic 108–168; BP diastolic 57–70; PULSE 61–82; RESP 14–18; TEMP 98.2–98.6; O2SAT 96–97
[2018-01-15] MEDS: BENZONATATE 100 MG CAP PO PRN (02:46)
[2018-01-15] MEDS: RESP: ALBUTEROL 2.5 MG/IPRATROPIUM 0.5 MG NEB (SCH) NEB ×3 (03:16→21:04)
[2018-01-15 06:54] LABS: HEMATOCRIT 39.1 % (35.0-46.0); HEMOGLOBIN 13.4 GM/DL (11.6-15.3); MEAN CELL VOLUME 87.5 FL (80.0-100.0); MEAN CORPUSCULAR HEMOGLOBIN 30.1 PG (27.0-34.0); MEAN CORPUSCULAR HGB CONC 34.3 % (32.0-36.0); MEAN PLATELET VOLUME 7.9 FL (7.0-11.0); PLATELET COUNT 164 TH/MM3 (150-450); RED BLOOD COUNT 4.46 MIL/MM3 (4.00-5.30); RED CELL DISTRIBUTION WIDTH 14.7 % (11.6-17.2); WHITE BLOOD COUNT 5.5 TH/MM3 (4.0-11.0)
[2018-01-15 07:19] LABS: BICARBONATE 29.8 MEQ/L (21.0-32.0); CALCIUM 8.6 MG/DL (8.5-10.1); CREATININE 0.77 MG/DL (0.50-1.00); MAGNESIUM 1.9 MG/DL (1.5-2.5); PHOSPHORUS 2.1 MG/DL (2.5-4.9)
[2018-01-15] MEDS: INSULIN ASPART SUPPLEMENTAL SCALE SQ SCH ×4 (08:00→20:59)
[2018-01-15] MEDS: DOCUSATE SODIUM 50 MG/SENNA 8.6 MG TAB PO SCH ×2 (09:00→20:58)
[2018-01-15] MEDS: LISINOPRIL 20 MG TAB PO SCH (09:44)
[2018-01-15] MEDS: METOPROLOL TARTRATE 50 MG TAB PO SCH ×2 (09:44→20:59)
[2018-01-15] MEDS: SODIUM CHLORIDE 0.9% FLUSH 10 ML FLUSH IV FLUSH SCH ×2 (09:45→20:58)
[2018-01-15] MEDS: FENOFIBRATE 145 MG TAB PO SCH (09:45)
[2018-01-15] MEDS: ASPIRIN EC 81 MG TABEC PO SCH (09:45)
[2018-01-15] MEDS: MAGNESIUM OXIDE 400 MG TAB PO SCH (09:46)
[2018-01-15] MEDS ORDERED: NOVOLOGSS SQ (11:05)
--- NOTE | 2018-01-15 13:57 | HHI.FF ---
Face to Face Verification Diagnosis: (1) CAD (coronary artery disease) (2) Hypoglycemia secondary to sulfonylurea (3) Non-STEMI (non-ST elevated myocardial infarction) Physical Therapy Order: Evaluate and Treat Occupational Therapy Order: Evaluate and Treat Home Health Nursing Order: Medical education Nursing assessment with vital signs I have seen patient Micaela Candelaria on 01/15/18. My clinical findings support the need for the requested home health care services because: Ltd mobility - disease progression I certify that my clinical findings support that this patient is homebound because: Unsafe to leave home unassisted Carrie Wong MD Jan 15, 2018 13:57
[2018-01-15] MEDS: metFORMIN HCL 500 MG TAB PO SCH (17:54)
[2018-01-15] MEDS: ATORVASTATIN 20 MG TAB PO SCH (20:58)
[2018-01-15] MEDS: LEVOTHYROXINE SODIUM 100 MCG TAB PO SCH (20:58)
--- NOTE | 2018-01-15 22:15 | HHI.PR ---
Objective Vitals Vital Signs Date Time Temp Pulse Resp B/P (MAP) Pulse Ox O2 Delivery O2 Flow Rate FiO2 01/15/18 21:00 67 01/15/18 20:00 61 01/15/18 19:00 69 01/15/18 19:00 95 Room Air 01/15/18 19:00 98.4 61 16 117/57 (77) 96 01/15/18 17:50 95 Room Air 01/15/18 17:00 98.2 73 16 136/63 (87) 96 01/15/18 16:00 63 01/15/18 15:00 62 01/15/18 14:00 68 01/15/18 13:00 62 01/15/18 12:37 63 01/15/18 12:22 98.6 61 14 108/58 (75) 97 01/15/18 12:00 62 01/15/18 11:57 96 Room Air 01/15/18 11:00 75 01/15/18 10:00 62 01/15/18 09:00 62 01/15/18 08:00 98.4 73 14 159/62 (94) 97 01/15/18 08:00 62 01/15/18 07:30 95 Room Air 01/15/18 07:00 62 01/15/18 06:00 66 01/15/18 05:00 64 01/15/18 04:00 82 01/15/18 03:30 67 18 168/70 (102) 97 01/15/18 03:00 61 01/15/18 02:00 68 01/15/18 01:00 72 01/15/18 00:00 68 01/14/18 23:45 73 16 153/79 (103) 97 01/14/18 23:00 69 I/O 01/14/18 01/14/18 01/14/18 01/15/18 01/15/18 01/15/18 07:00 15:00 23:00 07:00 15:00 23:00 Intake Total 1360 ml 1550 ml 480 ml Output Total 850 ml 1050 ml 1100 ml 650 ml Balance 510 ml 500 ml -620 ml -650 ml Intake Oral 360 ml 1400 ml 480 ml IV Total 1000 ml 150 ml Output Urine Total 850 ml 1050 ml 1100 ml 650 ml # Voids 1 # Bowel Movements 1 0 2 Result Diagram: 01/15/1862901/15/18629 Procedures NONE A/P Problem List: (1) Non-STEMI (non-ST elevated myocardial infarction) ICD Code: I21.4 - Non-ST elevation (NSTEMI) myocardial infarction; E16.0 - Drug -induced hypoglycemia without coma Status: Acute (2) Hypoglycemia secondary to sulfonylurea ICD Code: T38.3X1A - Poisoning by insulin and oral hypoglycemic [antidiabetic] drugs, accidental (unintentional), initialencounter; E16.0 - Drug-induced hypoglycemia without coma Status: Acute (3) Inadequate oral nutritional intake ICD Code: R63.8 - Other symptoms and signs concerning food and fluid intake Status: Acute (4) Hypokalemia ICD Code: E87.6 - Hypokalemia; E16.0 - Drug-induced hypoglycemia without coma Status: Acute Carrie Wong MD Jan 15, 2018 22:15
[2018-01-16] VITALS (18 sets, daily range): BP systolic 106–141; BP diastolic 58–67; PULSE 59–86; RESP 16–18; TEMP 98–98.5; O2SAT 95–99
[2018-01-16] MEDS: DEXTROSE 50% IN WATER 50 ML VIAL(D50) IV PUSH PRN (00:08)
[2018-01-16] MEDS: RESP: ALBUTEROL 2.5 MG/IPRATROPIUM 0.5 MG NEB (SCH) NEB ×2 (03:13→10:53)
[2018-01-16] MEDS: INSULIN ASPART SUPPLEMENTAL SCALE SQ SCH (08:00)
[2018-01-16] MEDS ORDERED: METF500 PO (08:17)
--- NOTE | 2018-01-16 08:25 | HHI.DS ---
Discharge Summary Admission Date Jan 12, 2018 at 20:35 Discharge Date: Jan 16, 2018 Admitting Diagnosis non-STEMI, hypoglycemia, hypokalemia, inadequate by mouth intake (1) Non-STEMI (non-ST elevated myocardial infarction) ICD Code: I21.4 - Non-ST elevation (NSTEMI) myocardial infarction; E16.0 - Drug -induced hypoglycemia without coma Status: Acute (2) Hypoglycemia secondary to sulfonylurea ICD Code: T38.3X1A - Poisoning by insulin and oral hypoglycemic [antidiabetic] drugs, accidental (unintentional), initialencounter; E16.0 - Drug-induced hypoglycemia without coma Status: Acute (3) Inadequate oral nutritional intake ICD Code: R63.8 - Other symptoms and signs concerning food and fluid intake Status: Acute (4) Hypokalemia ICD Code: E87.6 - Hypokalemia; E16.0 - Drug-induced hypoglycemia without coma Status: Acute Procedures NONE Brief History - From Admission 77-year-old female with a history of CAD, hypertension, diabetes and hyperlipidemia was brought in to the ED after being found lethargic with a blood sugar of 35. Patient is very sleepy at time of examination, glucose checked and found to be 25. D50 given and patient perked back up. She is oriented but does not remember what happened. According to ER report patient's had recently and since then patient has not been eating very well, family checked on her today and called [facility], when [facility] arrived the patient had a blood sugar of 35, D50 was given. She states she has been taking her medications as prescribed and thought she was eating ok. Upon arrival to the hospital patient was found to have an elevated troponin, but she currently denies any chest pain. She also denies any shortness of breath, fever or chills. CBC/BMP: 01/15/18 0630 01/15/18 0630 Significant Findings Laboratory Tests Test 01/13/18 10:18 01/13/18 22:00 01/14/18 06:01 01/15/18 06:30 Activated Partial Thromboplast Time 43.2 SEC (24.3-30.1) Urine Turbidity HAZY (CLEAR) Urine Occult Blood TRACE (NEG) Urine Leukocyte Esterase LARGE (NEG) Urine WBC 46 /hpf (0-5) Urine Bacteria OCC /hpf (NONE) Urine Mucus FEW /lpf (OCC) Neutrophils (%) (Auto) 71.9 % (16.0-70.0) Monocytes (%) (Auto) 8.3 % (0.0-8.0) Total Protein 6.2 GM/DL (6.4-8.2) Albumin 3.1 GM/DL (3.4-5.0) Calcium Level 8.2 MG/DL (8.5-10.1) Phosphorus Level 1.2 MG/DL (2.5-4.9) 2.1 MG/DL (2.5-4.9) Alkaline Phosphatase 39 U/L (45-117) Aspartate Amino Transf (AST/SGOT) 75 U/L (15-37) Chloride Level 110 MEQ/L (98-107) 108 MEQ/L (98-107) Estimat Glomerular Filtration Rate 76 ML/MIN (>89) 72 ML/MIN (>89) Thyroid Stimulating Hormone 3rd Gen 47.800 uIU/ML (0.358-3.740) PE at Discharge GENERAL: This is a well-nourished, well-developed patient, coughing. SKIN: No rashes, ecchymoses or lesions. Cool and dry. HEAD: Atraumatic. Normocephalic EYES: Pupils equal round and reactive. Extraocular motions intact. ENT: Nose without bleeding, purulent drainage or septal hematoma. airway patent. NECK: Trachea midline. No JVD or lymphadenopathy. CARDIOVASCULAR: Regular rate and rhythm without murmurs, gallops, or rubs. RESPIRATORY: Diminished bilateral bases, no wheezes or rhonchi GASTROINTESTINAL: Abdomen soft, non-tender, nondistended. No guarding. MUSCULOSKELETAL: Extremities without clubbing, cyanosis, or edema. No joint tenderness, effusion, or edema noted. NEUROLOGICAL: Awake and alert. Motor and sensory grossly within normal limits. Normal speech. PSYCH: Mood and affect appropriate. Hospital Course 77 years old female with history of coronary artery disease hypertension diabetes mellitus hyperlipidemia brought to the ED with non-STEMI MAJO, hypoglycemic episodes, initially admitted to ICU, cardiology consulted placed on heparin drip, IV fluid D5 we stopped glipizide hemoglobin A1c within normal limits, cleared by cardiology to discharge and follow-up with him as an outpatient for further workup which may include heart cath or AVR, we followed her BG for 24 hours seems to be around 100 without anti-hyper glycemic medication, therefore I held on placing her on metformin or any other agent and I advised her to continue checking her blood sugar and keep a log when to go for her PCP visit. I have discussed with the patient and her daughter as well as the case coordinator in length, I wanted to give patient insulin to be used per sliding scale for any elevated blood glucose however due to dementia we will hold on that and patient and her daughter was advised just to keep monitoring blood sugar and follow-up with PCP for further diabetic recommendation [id number] encounter performed with the patient on discharge day, as well as physical exam, summary of hospitalization course and postdischarge plan has been D/W the patient. D/W nurse D/W case coordinator. Discharge medications reviewed and printed and signed, post discharge follow up visit with PCP and other specialist as well as Brief hospital course and discharge summary has been placed. Pt Condition on Discharge: Stable Discharge Disposition: Disch w/ Home Health Serv Discharge Time: > 30 minutes Discharge Instructions DIET: Follow Instructions for: Heart Healthy Diet, Diabetic Diet Activities you can perform: See Additionl Instruction Other Activity Instructions: per PT New Medications: Insulin Aspart Inj (Novolog Inj) 100 Unit/Ml Inj 1 UNIT SQ ACHS SLIDING SCALE for dm for 30 Days, INJECTION Continued Medications: Aspirin DR (Aspir-81) 81 Mg Tabdr 81 MG PO DAILY Atorvastatin (Atorvastatin) 20 Mg Tab 20 MG PO HS for Cholesterol Management, #30 TAB 0 Refills Fenofibrate (Fenofibrate) 160 Mg Tab 160 MG PO DAILY, #30 TAB 0 Refills Levothyroxine (Levothyroxine) 88 Mcg Tab 88 MCG PO HS for Thyroid, #30 TAB 0 Refills Lisinopril-Hctz (Lisinopril-Hctz) 20-25 Mg Tab 1 TAB PO DAILY for Blood Pressure Management, #30 TAB 0 Refills Magnesium Oxide (Magnesium Oxide) 400 Mg Tab 400 MG PO DAILY for Nutritional Supplement, TAB 0 Refills Metoprolol Tartrate (Metoprolol Tartrate) 50 Mg Tab 50 MG PO BID, #60 TAB 0 Refills Carrie Wong MD Jan 16, 2018 08:25
[2018-01-16] MEDS: LISINOPRIL 20 MG TAB PO SCH (08:51)
[2018-01-16] MEDS: ASPIRIN EC 81 MG TABEC PO SCH (08:51)
[2018-01-16] MEDS: METOPROLOL TARTRATE 50 MG TAB PO SCH (08:51)
[2018-01-16] MEDS: MAGNESIUM OXIDE 400 MG TAB PO SCH (08:51)
[2018-01-16] MEDS: metFORMIN HCL 500 MG TAB PO SCH (08:52)
[2018-01-16] MEDS: FENOFIBRATE 145 MG TAB PO SCH (08:52)
[2018-01-16] MEDS: DOCUSATE SODIUM 50 MG/SENNA 8.6 MG TAB PO SCH (08:53)
[2018-01-16] MEDS: SODIUM CHLORIDE 0.9% FLUSH 10 ML FLUSH IV FLUSH SCH (08:54)
[2018-01-16] MEDS ORDERED: CIPR-9 PO (12:43)
== END 2018-01-16 13:46 | disposition home health service (06) | DRG 644 ==
LOC: PHED 18:24 → PHEDA 20:35 → HCVI 01-13 00:48 → HCIS 01-14 18:27
PROVIDERS: ADMIT Hospitalist; ATTEND Hospitalist
DX: E16.0 Drug-induced hypoglycemia without coma (principal); N17.9 Acute kidney failure, unspecified; F03.90 Unspecified dementia, unspecified severity, without behavioral disturbance, psychotic disturbance, mood disturbance, and anxiety; E86.0 Dehydration; E03.9 Hypothyroidism, unspecified; E87.6 Hypokalemia; E11.51 Type 2 diabetes mellitus with diabetic peripheral angiopathy without gangrene; E78.5 Hyperlipidemia, unspecified; T38.3X5A Adverse effect of insulin and oral hypoglycemic [antidiabetic] drugs, initial encounter; I10 Essential (primary) hypertension; I25.10 Atherosclerotic heart disease of native coronary artery without angina pectoris; I35.2 Nonrheumatic aortic (valve) stenosis with insufficiency; M19.90 Unspecified osteoarthritis, unspecified site; R05 Cough; Z95.1 Presence of aortocoronary bypass graft; Z79.84 Long term (current) use of oral hypoglycemic drugs; Z87.891 Personal history of nicotine dependence
CPT/HCPCS: 70450; 71045; 80048; 80053; 81001; 82010; 82272; 82948; 83036; 83690; 83735; 84100; 84132; 84439; 84443; 84484; 85025; 85027; 85610; 85730; 87077; 87086; 87186; 87804; 93005; 93306; 94640; 94664; 96360; J1644; J1815; J3475; J3480; J7050